=== PATIENT | female | born 2000 | race African-American/Black ===

== ENCOUNTER 2020-07-26 11:01 | Outpatient (CLI) | payer OTHER, BC, SELFPAY ==
--- NOTE | ~2020-07-26 | XR_ITS ---
EXAMINATION: XR shoulder RT min 2V DATE: 07/26/2020 11:27 INDICATION: Right shoulder pain. TECHNIQUE: 4 views of right shoulder were obtained. COMPARISON: None. FINDINGS: Bone alignment is normal. No fracture. Joint spaces are well maintained. IMPRESSION: 1. Normal right shoulder. Reviewed, dictated and finalized at location A. IMPRESSION: 1. Normal right shoulder.
--- NOTE | ~2020-07-26 | XR_ITS ---
XR lumbar spine 2-3V 07/26/2020 11:27 Indication: Low back pain. Lifting injury. Procedure: 3 views lumbar spine Comparison: No prior studies for comparison. Findings: No fracture, subluxation or dislocation. There is normal lumbar lordosis. No evidence for s pondylolisthesis. There is incomplete developmental fusion of the posterior elements at L5. Pedicles intact. Impression: 1: No significant bone or joint abnormality. Reviewed, dictated and finalized at location A. Impression: 1: No significant bone or joint abnormality.
== END 2020-07-26 11:02 | disposition home or self-care (01) ==
PROVIDERS: PCP Nurse Practitioner Family; Visit Provider Nurse Practitioner Family
DX: M54.5 Low back pain (principal); M25.511 Pain in right shoulder
CPT/HCPCS: 72100; 73030

== ENCOUNTER 2021-10-20 13:17 | Emergency (ER) | payer BC, SELFPAY ==
--- NOTE | ~2021-10-20 | XR_ITS ---
XR hip LT min 3V w AP pelvis DATE: 10/20/2021 16:24 INDICATION: Patient fell down steps. Lateral left hip pain, radiating to thigh. TECHNIQUE: AP pelvis. AP, lateral and crosstable lateral views of left hip COMPARISON: None FINDINGS: Incidentally noted is spina bifida occulta at L5. The pubic symphysis and sacroiliac joints are intact. No pelvic fracture or bone destruction is detected. No fracture or dislocation, avascular necrosis or bone destruction of the left hip. Hip joint spaces are symmetric and well preserved. IMPRESSION: No pelvic or left hip fracture or dislocation Reviewed, dictated and finalized at location B. RATOR OPERATOR
[2021-10-20 13:34] VITALS: BP 137/77; PULSE 92; RESP 14; TEMP 36.7; O2SAT 99
[2021-10-20 15:23] VITALS: BP 130/72; PULSE 83; RESP 15; TEMP 36.6; O2SAT 100
[2021-10-20 17:30] VITALS: BP 122/69; PULSE 74; RESP 15; TEMP 36.8; O2SAT 99
--- NOTE | 2021-10-20 18:37 | ED.GENADULT ---
HPI - General Adult General Chief complaint: Fall Stated complaint: fall Time Seen by Provider: 10/20/21 15:46 Source: patient Mode of arrival: ambulatory Limitations: no limitations History of Present Illness HPI narrative: Patient is 21-year-old female presented with chief complaint of lateral hip pain that began after falling down 8 steps on Wednesday. Patient denies head impact or loss of consciousness. Patient reports she is able to ambulate but there is discomfort. Patient reports fracturing the right hip multiple years ago but not have any prior fractures or injuries to the left hip. Patient reports that she is able to abduct and move the left leg. She denies any other areas of injury. Related Data Allergies Allergy/AdvReac Type Severity Reaction Status Date / Time No Known Allergies Allergy Verified 10/20/21 15:26 Review of Systems Review of Systems: CONSTITUTIONAL: Denies fever, chills, or sweats. EYES: Denies visual changes, redness, or discharge. ENT: Denies rhinorrhea, congestion, sore throat, or otalgia. CARDIOVASCULAR: Denies chest pain, palpitations, or edema. RESPIRATORY: Denies cough or dyspnea. GASTROINTESTINAL: Denies abdominal pain, nausea, vomiting, or diarrhea. GENITOURINARY: Denies dysuria or hematuria. SKIN: Denies rash or itching. MUSCULOSKELETAL: Reports left hip pain denies back pain, joint pain, or myalgia. NEUROLOGIC: Denies headache, numbness, dizziness, or weakness. PSYCHIATRIC: Denies anxiety or depression. Exam Narrative: GENERAL: Well-appearing, well-nourished, and in no acute distress. HEAD: Normocephalic, atraumatic. EYES: PERRLA and EOMI. NECK: Supple. Range of motion intact. CHEST: Clear to auscultation. No respiratory distress. No wheezes rales or rhonchi HEART: Regular rate and rhythm. No murmur heard. Normal peripheral pulses. EXTREMITIES: Pain to the lateral aspect of left leg/hip. No open wounds. No deformity appreciated. Limping gait. Patient able to abduct left leg with discomfort. No edema. SKIN: Warm, dry, no rash. NEURO: No focal deficits. Alert and oriented x3. PSYCH: Normal mood and affect. Course Vital Signs Vital signs: Vital Signs Temperature 98.0 F 10/20/21 13:34 Pulse Rate 92 10/20/21 13:34 Respiratory Rate 14 10/20/21 13:34 Blood Pressure 137/77 10/20/21 13:34 Pulse Oximetry 99 10/20/21 13:34 Temperature 97.9 F 10/20/21 15:23 Pulse Rate 83 10/20/21 15:23 Respiratory Rate 15 10/20/21 15:23 Blood Pressure 130/72 10/20/21 15:23 Pulse Oximetry 100 10/20/21 15:23 Medical Decision Making MDM Narrative Medical decision making narrative: No fractures noted on x-ray. Patient likely has injury to the tendons and ligaments. Patient has been instructed to follow-up with primary care with specialist for further evaluation of symptoms of ligament. She has been informed that she may need physical therapy or further imaging which can include an MRI outpatient. Patient verbalized understanding agreement with plan. Patient will be given crutches to assist with ambulation. Patient works at [employer] and will be given note to avoid prolonged standing or walking. Differential Diagnosis Differential Diagnosis: Fracture, sprain, strain Vital Signs Vital Signs: Vital Signs Temperature 98.0 F 10/20/21 13:34 Pulse Rate 92 10/20/21 13:34 Respiratory Rate 14 10/20/21 13:34 Blood Pressure 137/77 10/20/21 13:34 Pulse Oximetry 99 10/20/21 13:34 Temperature 97.9 F 10/20/21 15:23 Pulse Rate 83 10/20/21 15:23 Respiratory Rate 15 10/20/21 15:23 Blood Pressure 130/72 10/20/21 15:23 Pulse Oximetry 100 10/20/21 15:23 Lab Data Labs: UCG Bedside Result Negative Reference Range: Negative Imaging Data Radiologist's impression: ITS Impressions Hip/Pelvis X-Ray 10/20/21 16:27 IMPRESSION: No pelvic or left hip fracture or dislocation
== END 2021-10-20 17:30 | disposition home or self-care (01) ==
LOC: ANHED 17:14
PROVIDERS: Emergency Provider Emergency Medicine; PCP Nurse Practitioner Family
DX: S73.102A Unspecified sprain of left hip, initial encounter (principal); W10.9XXA Fall (on) (from) unspecified stairs and steps, initial encounter
CPT/HCPCS: 73502; 81025; 99283

== ENCOUNTER 2021-11-09 08:15 | Emergency (ER) | payer BC, SELFPAY ==
--- NOTE | ~2021-11-09 | XR_ITS ---
XR thoracic spine 3V 11/09/2021 08:57 Indication: Back pain after recent fall Procedure: 3 views thoracic spine. Comparison: No prior studies for comparison. Findings: No fracture, subluxation or dislocation. Mild dextrocurvature of the lower thoracic spine. Vertebral body heights are maintained. Pedicles intact. Surrounding osseous structures within normal limits. Impression: 1: No acute abnormality of the thoracic spine. Reviewed, dictated and finalized at location A. INTEGRATION ANALYST Impression: 1: No acute abnormality of the thoracic spine.
--- NOTE | ~2021-11-09 | XR_ITS ---
XR lumbar spine 2-3V 11/09/2021 08:57 Indication: Back pain Procedure: 2 views of the lumbar spine Comparison: 07/26/2020 Findings: No acute fracture or traumatic malalignment. Vertebral body heights are maintained. No evid ence for spondylolisthesis. Pedicles intact. There is incomplete fusion of the spinous processes at L 5. Sacral foramen are symmetric. Impression: 1: No acute abnormality of the lumbar spine. Reviewed, dictated and finalized at location A. E OPERATOR HELPER Impression: 1: No acute abnormality of the lumbar spine.
[2021-11-09 08:25] VITALS: BP 136/90; PULSE 101; RESP 20; TEMP 36.8; O2SAT 100
--- NOTE | 2021-11-09 08:42 | ED.BACK ---
HPI - Back Pain/Injury General Chief Complaint: Back Pain/Injury Stated Complaint: back pain after fall 2 weeks ago Time Seen by Provider: 11/09/21 08:41 Source: patient Mode of arrival: ambulatory Limitations: no limitations History of Present Illness HPI Narrative: Patient is a 21-year-old female presenting for evaluation of middle, lower back pain that occurred following a fall down 8 steps 2 weeks ago. Patient was seen in this emergency department for her initial visit. I did review her chart. Patient at that point was only reporting hip pain and had negative hip imaging and was ultimately discharged home as she was neurovascularly intact at time. Patient returns for dull, aching middle and lower back pain with radiates into her buttocks bilaterally. She denies any thigh pain or knee pain. No foot drop. She has been ambulatory without difficulty. She reports that pain is exacerbated with certain movements such as bending. Patient reports she has been doing heavy bending or lifting at work over the past 2 weeks. Patient has been taking naproxen and muscle relaxers as prescribed without much improvement in her symptoms. Patient denies any fever, chills. She denies any saddle anesthesia. No difficulty with bowel or bladder function. Pt denies dysuria, hematuria, urinary frequency. Related Data Allergies Allergy/AdvReac Type Severity Reaction Status Date / Time No Known Allergies Allergy Verified 11/09/21 08:28 Review of Systems Review of Systems: CONSTITUTIONAL: Denies fever, chills, or sweats. EYES: Denies visual changes, redness, or discharge. ENT: Denies rhinorrhea, congestion, sore throat, or otalgia. CARDIOVASCULAR: Denies chest pain, palpitations, or edema. RESPIRATORY: Denies cough or dyspnea. GASTROINTESTINAL: Denies abdominal pain, nausea, vomiting, or diarrhea. GENITOURINARY: Denies dysuria or hematuria. SKIN: Denies rash or itching. MUSCULOSKELETAL: Reports back pain without other joint pain, or myalgia. NEUROLOGIC: Denies headache, numbness, or weakness. [facility] Social History Social History (Updated 11/09/21 @ 08:49 by Mami Lewis MD) Smoking status: Never smoker Alcohol intake: never Substance use: never Gender identity (if verbalized by the patient): Female Exam Narrative: GENERAL: Awake, alert, conversant HEAD: Normocephalic, atraumatic. EYES: PERRLA and EOMI. ENT: Nares clear, no rhinorrhea or epistaxis. Mucous membranes moist. NECK: Supple. CHEST: No respiratory distress, breathing even and non labored HEART: Regular rate, sinus rhythm ABDOMEN:Non distended, non tender Thorax: No cervical or thoracic midline lumbar tenderness to palpation. No paraspinal tenderness. There is positive lumbar midline tenderness and paraspinal tenderness which exactly reproduces symptoms. No step-offs or deformities. EXTREMITIES: Normal range of motion. No edema. SKIN: Warm, dry, no rash. NEURO:No focal deficits. Alert and oriented x3. EOMs intact without nystagmus. No facial droop/asymmetry noted bilaterally. Grimace intact. Intact sensation in face. Hearing intact bilaterally. Shoulder shrug intact. Strength 5/5 bilateral upper extremities. Strength 5/5 bilateral lower extremities. Reflexes 2+ patellar. Ambulatory with a narrow base, steady gait, no ataxia. Course Vital Signs Vital signs: Vital Signs Temperature 36.8 C 11/09/21 08:25 Pulse Rate 101 H 11/09/21 08:25 Respiratory Rate 20 11/09/21 08:25 Blood Pressure 136/90 11/09/21 08:25 Pulse Oximetry 100 11/09/21 08:25 Temperature 36.8 C 11/09/21 08:25 Pulse Rate 101 H 11/09/21 08:25 Respiratory Rate 20 11/09/21 08:25 Blood Pressure 136/90 11/09/21 08:25 Pulse Oximetry 100 11/09/21 08:25 MDM - Back Pain/Injury MDM Narrative Medical decision making narrative: Given History and Exam the patient appears to be at low risk for Spinal Cord Compression Syndrome, Vertebral Malignancy/Mets, acute Spinal Fract
[2021-11-09] MEDS: predniSONE 20 MG TABLET 60 MG PO (09:02)
[2021-11-09] MEDS: ACETAMINOPHEN 500 MG TABLET 1000 MG PO (09:03)
[2021-11-09] MEDS: KETOROLAC (*BKC) 60 MG/2 ML VIAL 30 MG IM (09:03)
== END 2021-11-09 10:10 | disposition home or self-care (01) ==
PROVIDERS: Emergency Provider Emergency Medicine; PCP Nurse Practitioner Family
DX: S39.012A Strain of muscle, fascia and tendon of lower back, initial encounter (principal); W10.9XXA Fall (on) (from) unspecified stairs and steps, initial encounter
CPT/HCPCS: 72072; 72100; 96372; 99283; A9270; J1885; J7512

== ENCOUNTER 2022-07-11 10:50 | Emergency (ER) | payer BC, OTHER, SELFPAY ==
[2022-07-11 10:56] VITALS: BP 113/68; PULSE 86; RESP 16; TEMP 37.1; O2SAT 99
[2022-07-11 11:33] VITALS: BP 107/79; PULSE 77; RESP 15; O2SAT 99
[2022-07-11 12:00] VITALS: BP 106/70; PULSE 70; O2SAT 98
--- NOTE | 2022-07-11 12:24 | ED.EXTPRO ---
HPI - Extremity Problem General Chief complaint: Extremity Problem,Nontraumatic Stated complaint: right arm pain and weakness Time Seen by Provider: 07/11/22 12:16 Source: patient Mode of arrival: ambulatory Limitations: no limitations History of Present Illness HPI Narrative: Patient is 22 years old -[place] female presents with gradual increase of pain, numbness of the right hand and distal right forearm over the last 2 weeks. 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 Patient denies any trauma. Related Data Home Medications Medication Instructions Recorded Confirmed buspirone 5 mg tablet mg 07/11/22 valacyclovir 1 gram tablet mg 07/11/22 Allergies Allergy/AdvReac Type Severity Reaction Status Date / Time No Known Allergies Allergy Verified 11/09/21 08:28 Review of Systems Review of Systems: All systems reviewed & are unremarkable except as noted in HPI and below PMFSH Social History Social History Smoking status: Never smoker Alcohol intake: never Substance use: never Gender identity (if verbalized by the patient): Female Exam Narrative: General appearance: Well-developed, well-nourished Skin: Normal color Head: Normocephalic, nontraumatic Eyes: Clear conjunctiva ENT: Oropharynx normal, ears normal, nose normal Neck: Supple, nontender Chest and respiratory: Airway patent, no respiratory distress, no accessory muscle use Heart: Regular rate/rhythm Abdomen: Soft, nontender, no organomegaly, quiet bowel sounds Vascular: Normal peripheral pulses, normal capillary refill. Musculoskeletal: Normal range of motion, nontender back Neurologic: Alert and oriented ?3, FORM LAYER is normal as tested, no gross motor deficit, positive Phalen's test Course Vital Signs Vital signs: Vital Signs Temperature 37.1 C 07/11/22 10:56 Pulse Rate 86 07/11/22 10:56 Respiratory Rate 16 07/11/22 10:56 Blood Pressure 113/68 07/11/22 10:56 Pulse Oximetry 99 07/11/22 10:56 Oxygen Delivery Room Air 07/11/22 10:56 Temperature 37.1 C 07/11/22 10:56 Pulse Rate 77 07/11/22 13:10 Respiratory Rate 15 07/11/22 13:10 Blood Pressure 116/71 07/11/22 13:10 Pulse Oximetry 98 07/11/22 13:10 Oxygen Delivery Room Air 07/11/22 10:56 Critical Care Time Critical Care Time Critical Care Time: No Discharge Plan Discharge Clinical Impression: Acute carpal tunnel syndrome, Paresthesia of hand Patient Disposition: Home, Self-Care Condition: Stable Instructions: Antibiotic Form, Carpal Tunnel Syndrome (DC), Paresthesia (ED) Additional Instructions: Return if symptoms are worsening , call Dr. Man for appointment, take Tylenol, as needed for pain Wrist splint to limit wrist movement, mainly at night Prescriptions: New naproxen [Naprosyn] 500 mg tablet 500 mg PO BID PRN (Reason: pain) Qty: 14 0RF No Action acetaminophen 500 mg capsule 500 mg PO Q6H PRN (Reason: fever or pain) Qty: 30 0RF buspirone 5 mg tablet valacyclovir 1 gram tablet Follow-up/Referrals: Ayesha,JOSELITO Johnson [Primary Care Provider] - Mina Man MD [Physician] - 07/13/22 Stand Alone Forms: Work/School Release IP
[2022-07-11 13:10] VITALS: BP 116/71; PULSE 77; RESP 15; O2SAT 98
== END 2022-07-11 13:18 | disposition home or self-care (01) ==
PROVIDERS: Emergency Provider Emergency Medicine; PCP Nurse Practitioner Family
DX: G56.01 Carpal tunnel syndrome, right upper limb (principal); R20.2 Paresthesia of skin
CPT/HCPCS: 99283

== ENCOUNTER 2022-08-10 09:18 | Outpatient (CLI) | payer BC, OTHER, SELFPAY ==
--- NOTE | ~2022-08-10 | XR_ITS ---
EXAMINATION:XR cervical spine 4-5V DATE: 08/10/2022 10:34 INDICATION: Neck pain TECHNIQUE: AP, lateral, lateral swimmers and odontoid views of the cervical spine are provided. COMPARISON: None FINDINGS: Alignment is normal. The odontoid is intact. No fracture is identified. Vertebral body heig hts and disk spaces are normal. Prevertebral soft tissues are normal. IMPRESSION: 1. No acute osseous abnormality. Reviewed, dictated and finalized at location A.
--- NOTE | ~2022-08-10 | XR_ITS ---
EXAMINATION: XR shoulder RT min 2V INDICATION: Right shoulder pain TECHNIQUE: Four views of the right shoulder are submitted. COMPARISON: 07/26/2020 FINDINGS: Normal alignment. No fracture. Glenohumeral and acromioclavicular joint spaces are normal. Soft tissues are unremarkable. IMPRESSION: 1. No acute osseous abnormality. Reviewed, dictated and finalized at location A.
[2022-08-10 09:20] VITALS: BP 127/78; PULSE 92; RESP 18; TEMP 36.5; O2SAT 100
--- NOTE | 2022-08-10 10:26 | ED.UPPEXIN ---
HPI - Extremity Injury (Upper) General Chief Complaint: Extremity Injury, Upper Stated Complaint: R SHOULDER PAIN Time Seen by Provider: 08/10/22 09:33 Source: patient Mode of arrival: ambulatory Limitations: no limitations History of Present Illness HPI narrative: Patient is a 22 y/o female who presents to the ED with c/o R shoulder pain. Patient reports having pain for the last 3 weeks to 1 month. Initially was only having pain in her R wrist, and was diagnosed with carpal tunnel after being seen in the ED. She has been wearing a cock-up wrist splint at night and at work. Over the last couple weeks pain seems to be in her right shoulder, radiating up to her neck and down her right upper extremity. No known injury. No numbness/tingling, weakness. She was prescribed naproxen previously and has been taking this at night with relief of pain. Related Data Home Medications Medication Instructions Recorded Confirmed buspirone 5 mg tablet mg 07/11/22 valacyclovir 1 gram tablet mg 07/11/22 Allergies Allergy/AdvReac Type Severity Reaction Status Date / Time No Known Allergies Allergy Verified 08/10/22 09:26 Review of Systems Review of Systems: CONSTITUTIONAL: Denies fever, chills, or sweats. MUSCULOSKELETAL: Reports R shoulder pain, down RUE, into neck. NEUROLOGIC: Denies tingling, numbness, or weakness. All systems reviewed & are unremarkable except as noted in HPI and below PMFSH Past Medical History Medical History (Updated 08/10/22 @ 11:03 by Mahsa Hatch PA-C) Herpes genitalia Surgical History Surgical History (Updated 08/10/22 @ 10:30 by Mahsa Hatch PA-C) No pertinent past surgical history Social History Social History Smoking status: Never smoker Alcohol intake: never Substance use: never Gender identity (if verbalized by the patient): Female Exam Narrative: GENERAL: Well appearing, well-nourished, non-toxic, in no acute distress. HEAD: Normocephalic, atraumatic. NECK: Supple. No adenopathy, no masses. No midline spinal tenderness. Mild R sided paraspinal muscle tenderness and tightness into trapezius. RESPIRATORY: Airway patent, respirations nonlabored. Clear to auscultation bilaterally, no rales, rhonchi, wheezing. CARDIOVASCULAR: Regular rate and rhythm without murmurs, rubs, or gallops. Radial pulses 2+ and equal bilaterally. MUSCULOSKELETAL: Moves all extremities. No gross deformities. Mild limited ROM of R shoulder due to discomfort, abduction and forward flexion to about 110 degrees. Full internal and external rotation but some discomfort with this. TTP over anterior R shoulder. SKIN: Warm, dry, normal color. No rashes. NEURO: A&O X3. Speech clear. Cranial nerves II-XII grossly intact. Steady gait. No ataxic movements. Equal research intern strengths. PSYCHIATRIC: Appropriate mood and affect. Normal interaction. Course Vital Signs Vital signs: Vital Signs Temperature 97.7 F 08/10/22 09:20 Pulse Rate 92 08/10/22 09:20 Respiratory Rate 18 08/10/22 09:20 Blood Pressure 127/78 08/10/22 09:20 Pulse Oximetry 100 08/10/22 09:20 Oxygen Delivery Room Air 08/10/22 09:20 Temperature 97.7 F 08/10/22 09:20 Pulse Rate 92 08/10/22 09:20 Respiratory Rate 18 08/10/22 09:20 Blood Pressure 127/78 08/10/22 09:20 Pulse Oximetry 100 08/10/22 09:20 Oxygen Delivery Room Air 08/10/22 09:20 MDM - Extremity Injury (Upper) MDM Narrative Medical decision making narrative: Patient presented to ED with 1 month history of right shoulder pain, pain somewhat radicular in nature, radiating up to neck, though more tightness/muscle tension over trapezius. No red flag symptoms, signs of cord compression. No weakness, numbness, tingling. XR of shoulder and c-spine w/o acute findings. Discussed that patient's pain could be related to rotator cuff impingement/tendinopathy as she does have some discom
[2022-08-11 12:11] LABS: Basophils Percent Auto 0.6 % (0.2-1.2); Eosinophils Absolute Auto 0.1 K/mm3 (0-0.3); Eosinophils Percent Auto 0.9 % (0-4.4); Hematocrit 38.8 % (37.0-47.0); Immature Granulocyte Absolute 0.01 K/mm3 (0.00-0.031); Immature Granulocyte Percent A 0.2 % (0-0.5); Lymphocytes Percent Auto 27.1 % (18.3-44.2); Mean Corpuscular HGB Conc 36.1 g/dl (32-36); Mean Corpuscular Volume 88.8 fl (80-100); Mean Platelet Volume 10.1 fl (7.4-10.4); Monocytes Absolute Auto 0.4 K/mm3 (0.1-0.6); Neutrophils Absolute Auto 4.3 K/mm3 (1.3-6.7); Neutrophils Percent Auto 65.2 % (45.5-73.1); Platelet Count Result 336 k/mm3 (150-375); Red Blood Count 4.37 M/mm3 (4.2-5.4); Red Cell Distribution Width 13.8 % (11.5-14.5); White Blood Count 6.6 K/mm3 (4.5-10.0)
[2022-08-11 12:24] LABS: Rheumatoid Factor 21.9 IU/ML (<12)
[2022-08-11 12:26] LABS: Alanine Aminotransferase 20 U/L (6-35); Albumin Level 4.6 g/dL (3.5-5.1); Alkaline Phosphatase 66 U/L (38-126); Anion Gap 8 mmol/L (8-16); Aspartate Amino Transferase 23 U/L (14-36); Bilirubin,Total 0.6 mg/dL (0.2-1.3); Blood Urea Nitrogen 11 mg/dL (7-17); CRP < 0.5 mg/dL (<1.0); Calcium 9.3 mg/dL (8.4-10.2); Carbon Dioxide 24 mmol/L (22-30); Chloride 104 mmol/L (98-107); Creatine Kinase 49 U/L (30-135); Estimated CRCL calculation 108 ml/min; Estimated Glomerular Filt Rate > 60; Glucose 94 mg/dL (65-110); Lactate Dehydrogenase 148 U/L (120-246); Potassium 4.4 mmol/L (3.4-5.0); Sodium 136 mmol/L (137-145); Uric Acid 3.5 mg/dL (2.5-7.5)
[2022-08-11 13:15] LABS: Erythrocyte Sedimentation Rate 17 mm/hr (0-20)
[2022-08-11 14:01] LABS: Vitamin D 25 Hydroxy 28.2 ng/mL
[2022-08-11 15:02] LABS: Hemoglobin A1C 5.3 % (<5.7)
[2022-08-11 22:10] LABS: Complement C3 110 mg/dL (88-165)
[2022-08-14 04:40] LABS: Thyroid Peroxidase Antibodies <1 IU/mL (<9)
[2022-08-15 04:13] LABS: Aldolase 4.9 U/L (<=8.1); Angiotensin Converting Enzyme 20 U/L (9-67)
[2022-08-15 12:20] LABS: Anti Cyclic Citrullinated Pept <16 Units (<20)
[2022-08-16 07:52] LABS: SM Antibody <1.0; SM/RNP Antibody <1.0; SS-A <1.0; SS-B <1.0
[2022-08-17 06:13] LABS: Hexagonal Phase Confirm Negative (Negative); Lupus dRVVT Screen 37 sec (<=45); PTT-LA Screen 41 sec (<=40)
[2022-08-18 22:43] LABS: ANA Pattern Nuclear, Speckled
== END 2022-08-11 11:30 | disposition home or self-care (01) ==
LOC: ANHED 11:11 → ANHLAB 08-11 11:35
PROVIDERS: Emergency Provider Emergency Medicine; PCP Nurse Practitioner Family; Visit Provider Internal Medicine
DX: M54.12 Radiculopathy, cervical region (principal); M25.511 Pain in right shoulder; M12.811 Other specific arthropathies, not elsewhere classified, right shoulder; F41.9 Anxiety disorder, unspecified
CPT/HCPCS: 36415; 72050; 73030; 80053; 82085; 82164; 82306; 82550; 83036; 83615; 84443; 84550; 85025; 85598; 85613; 85652; 85730; 86038; 86039; 86140; 86160; 86200; 86225; 86235; 86376; 86430

== ENCOUNTER 2022-08-22 11:37 | Outpatient (CLI) | payer BC, OTHER, SELFPAY ==
--- NOTE | ~2022-08-22 | XR_ITS ---
EXAMINATION: XR foot LT standing 2V DATE: 08/22/2022 12:13 INDICATION: Unspecified arthritis, unspecified site. TECHNIQUE: 2 views of left foot standing were obtained. COMPARISON: None. FINDINGS: Bone alignment is normal. No fracture. There is mild osteoarthritis of talonavicular joint. IMPRESSION: 1. Mild osteoarthritis of talonavicular joint. Reviewed, dictated and finalized at location A.
--- NOTE | ~2022-08-22 | XR_ITS ---
EXAMINATION: XR hand BI arthritis min 3V DATE: 08/22/2022 12:13 INDICATION: Unspecified osteoarthritis, unspecified site. TECHNIQUE: 4 views of right hand and 4 views of left hand on a total of 7 radiographs were obtained. COMPARISON: None. FINDINGS: RIGHT HAND: Bone alignment is normal. No fracture. Joint spaces are normal. LEFT HAND: Bone alignment is normal. No fracture. Joint spaces are normal. IMPRESSION: 1. No arthritis. Reviewed, dictated and finalized at location A. IMPRESSION: 1. No arthritis.
--- NOTE | ~2022-08-22 | XR_ITS ---
XR sacroiliac joints min 3V 08/22/2022 12:13 Indication: Osteoarthritis. Procedure: 3 views of the sacroiliac joints Comparison: No prior studies for comparison. Findings: Sacroiliac joints are symmetric bilaterally without significant degenerative change, erosio ns or ankylosis. Sacral foramen are symmetric. Surrounding pelvic structures are unremarkable. Impression: 1: No significant abnormality of the sacroiliac joints. Reviewed, dictated and finalized at location B. Impression: 1: No significant abnormality of the sacroiliac joints.
--- NOTE | ~2022-08-22 | XR_ITS ---
EXAMINATION: XR foot RT standing 2V DATE: 08/22/2022 12:13 INDICATION: Unspecified osteoarthritis, unspecified site. TECHNIQUE: 2 views of right foot standing were obtained. COMPARISON: None. FINDINGS: Bone alignment is normal. No fracture. There is mild osteoarthritis of talonavicular joint. IMPRESSION: 1. Mild osteoarthritis of talonavicular joint. Reviewed, dictated and finalized at location A.
[2022-08-27 07:07] LABS: ANCA Screen Negative (Negative); Thyroid Peroxidase Antibodies <1 IU/mL (<9)
== END 2022-08-22 11:38 | disposition home or self-care (01) ==
PROVIDERS: PCP Nurse Practitioner Family; Visit Provider Internal Medicine
DX: M60.9 Myositis, unspecified (principal); F41.9 Anxiety disorder, unspecified; M19.071 Primary osteoarthritis, right ankle and foot; M19.072 Primary osteoarthritis, left ankle and foot
CPT/HCPCS: 36415; 72202; 73130; 73620; 86036; 86331; 86334; 86376; 86606; 86609

== ENCOUNTER 2022-09-30 15:37 | Outpatient (CLI) | payer BC, OTHER, SELFPAY ==
--- NOTE | ~2022-09-30 | MR_ITS ---
EXAMINATION: MR cervical spine wo/w con DATE: 09/30/2022 16:54 INDICATION: Neck pain. TECHNIQUE: Magnetic resonance imaging (MRI) of the cervical spine was performed without and with 15 m L MultiHance intravenous contrast. COMPARISON: Cervical spine radiographs 08/10/2022 FINDINGS: There is hypolordosis of cervical spine. Vertebral body heights and intervertebral disc hei ghts are normal. The spinal cord signal intensity is normal. The following disc levels are specifical ly discussed: C2-C3: The disc does not extend beyond the endplate margin. There is no uncovertebral joint osteoarth ritis. There is mild bilateral facet joint osteoarthritis. There is no neural foraminal stenosis. The re is no central canal stenosis. C3-C4: The disc does not extend beyond the endplate margin. There is no uncovertebral joint osteoarth ritis. There is mild bilateral facet joint osteoarthritis. There is no neural foraminal stenosis. The re is no central canal stenosis. C4-C5: The disc does not extend beyond the endplate margin. There is no uncovertebral joint osteoarth ritis. There is no facet joint osteoarthritis. There is no neural foraminal stenosis. There is no philippe tral canal stenosis. C5-C6: There is a right central extrusion. There is mild bilateral uncovertebral joint osteoarthritis . There is no facet joint osteoarthritis. There is no neural foraminal stenosis. There is mild centra l canal stenosis. C6-C7: The disc does not extend beyond the endplate margin. There is no uncovertebral joint osteoarth ritis. There is no facet joint osteoarthritis. There is no neural foraminal stenosis. There is no philippe tral canal stenosis. C7-T1: The disc does not extend beyond the endplate margin. There is mild bilateral uncovertebral magdalena nt osteoarthritis. There is moderate right and mild left facet joint osteoarthritis. There is mild ri ght neural foraminal stenosis. There is no central canal stenosis. IMPRESSION: 1. Mild cervical spondylosis. Reviewed, dictated and finalized at location A. AL TUBE WINDER
--- NOTE | ~2022-09-30 | MR_ITS ---
EXAMINATION: MR lumbar spine wo/w con DATE: 09/30/2022 16:54 INDICATION: Low back pain. TECHNIQUE: Magnetic resonance imaging (MRI) of the lumbar spine was performed without and with 15 mL MultiHance intravenous contrast. COMPARISON: Lumbar spine radiographs 11/09/2021 FINDINGS: Bone alignment is normal. Vertebral body heights are normal. There is mildly decreased disc height at L5-S1. The distal spinal cord signal intensity is normal. The conus medullaris is at L1-L2 . The following disc levels are specifically discussed: L1-L2: The disc does not extend beyond the endplate margin. There is mild bilateral facet joint osteo arthritis. There is no neural foraminal stenosis. There is no central canal stenosis. L2-L3: The disc does not extend beyond the endplate margin. There is moderate bilateral facet joint o steoarthritis. There is no neural foraminal stenosis. There is no central canal stenosis. L3-L4: The disc does not extend beyond the endplate margin. There is moderate right and mild left fac et joint osteoarthritis. There is no neural foraminal stenosis. There is no central canal stenosis. L4-L5: The disc is mildly bulging. There is mild bilateral facet joint osteoarthritis. There is mild bilateral neural foraminal stenosis. There is no central canal stenosis. L5-S1: The disc is bulging and has an annular fissure. There is moderate bilateral facet joint osteoa rthritis. There is mild bilateral neural foraminal stenosis. There is mild central canal stenosis. IMPRESSION: 1. Mild lumbar spondylosis. Reviewed, dictated and finalized at location A. ER FURNACE IMPRESSION: 1. Mild lumbar spondylosis.
== END 2022-09-30 15:38 | disposition home or self-care (01) ==
PROVIDERS: PCP Nurse Practitioner Family; Visit Provider Internal Medicine
DX: R20.2 Paresthesia of skin (principal); R20.0 Anesthesia of skin; M06.9 Rheumatoid arthritis, unspecified; M75.41 Impingement syndrome of right shoulder; M54.12 Radiculopathy, cervical region; M43.02 Spondylolysis, cervical region; M43.06 Spondylolysis, lumbar region
CPT/HCPCS: 72156; 72158; A9577

== ENCOUNTER 2022-11-04 10:00 | Outpatient (RCR) | payer BC, SELFPAY ==
--- NOTE | 2022-10-05 13:12 | PCPTNOTE ---
Patient called & cancelled scheduled appointment this date due to scheduling conflict
--- NOTE | 2022-10-07 13:24 | PTOPEVAL1 ---
Assessment and note entered by Jennifer Medina, PT Evaluation Information Assessment Status Evaluation Diagnosis R shoulder and cervical pain Onset August 2022 Subjective Information gradual increase in neck pain, has gotten worse; In August went to ER due to pain; slipped and fell at home 2 days ago, fell backwards and landed on her L elbow, did not hit head/neck; is able to do everything at home but lifting; problems with sleeping and moving in/out bed--feel like cannot lift her neck and head--heavy; and afraid she will hurt her neck more; did have pain in her R arm, but that is less now. Reported Pain Level Pain Score Self Report Additional Pain Score Comments pain range of 8-10/10; achey, sore, stiff, swollen from chest up; cannot move neck; increase pain with moving neck, sleeping--getting comfortable is an issue, sleep about 3 hours/time (her normal is 6 hours); decrease pain with heat, change position, more upright position; Have headaches every day, about 50-100% day, start at base of neck, go up back of head to top of head and eyes; tenderness over R upper traps, top of shoulder throb and ache; ALSO have back pain; Assessment PT Clinical Summary Angeline has the diagnosis of cervical and R shoulder pain. She reports gradual increase in neck pain, R shoulder pain and headaches. The pain into her R arm is less, now only in shoulder. Sleeping and activity level effected by pain, with Oswestry self assessment score of 74% limitation. She also has back pain and rheumatoid arthritis. Her MRI report states mild cervical spondylosis and mild facet OA. With the evaluation, she has decreased cervical rotation ROM to the R and pain with motions of cervical flexion, extension, rotation R and shoulder flexion R; she has poor standing position of her neck and shoulders, with spasms throughout B upper traps, B SCM and R upper cervical area. Skilled PT services are indicated for modalities to decrease pain and spasms, therapeutic exercises to increase flexibility and strength of cervical- thoracic area with education for HEP and posture. Plan of Care Interventions E
--- NOTE | 2022-10-27 11:26 | PCPTNOTE ---
DINING SERVER called Pt at 10:33 and left message for pt that she was had an appt this morning at [place].
--- NOTE | 2022-11-04 10:47 | PTOPPROG ---
Assessment and note entered by Jennifer Medina, PT Evaluation Information Assessment Status Progress Diagnosis R shoulder and cervical pain Onset August 2022 Subjective Information Lyriq reports: still having pain in neck, not sure if any better or not; few days ago had really bad low back pain, that has eased now; less pain in R shoulder than there was; pain range of 6-10/10; R side of neck, upper trunk, shoulder and scapular areas; constant headaches, back of neck, R and L hindu areas; sleeping tolerance 4-5 hours at time; increase pain with lifting, sit straight up without any head support; decreased pain- lean head back on chair for support, heat; take ibuprofen PRN; self assessment Oswestry neck score of 60% limitation in activity level Assessment PT Clinical Summary Ms. Lance has received 6 PT sessions. Compared to the initial evaluation: pain rating at the least has improved from 8 to 6/10 and high rating same at 10/10; reports less R shoulder pain; headaches remain at constant ; sleeping tolerance has improved from 3 to 4-5 hours at time self assessment improved from 74 to 60% limitation in activity level; slight increase in ROM of cervical rotation to R; continues to have pain increase with cervical rotation to R and extension motions; R shoulder active motions do not increase her pain; MAX lifts: standing R shoulder flexion 5# x 5 reps, report increase R shoulder pain B UE box lift: waist/floor height, 15# x 1 rep report R shoulder pain The goals were partially achieved. She continues to have high pain rating and headaches. Discussed with her to have a follow up appointment and if PT is to continue, she will need a new script. HOLD PT--await further orders if PT is to continue Plan of Care PT Services Indicated Yes Treatment Frequency and HOLD PT--pt to have follow up appointment, await Duration further orders if PT is to continue. These treatments will address the objective and functional deficits as defined above. The patient will be advanced safely and appropriat
--- NOTE | 2022-11-30 10:15 | PCPTNOTE ---
PHYSICAL THERAPY DISCHARGE 11-30-22 Attending Provider: TESHA Camarena Patient:Angeline Lance Date of :2000 Ms. Lance has not returned for any further treatments since the reevaluation on 11/04/2022, therefore she will be discharged at this time. Refer to that report, for her status at the last session. Thank you for referring Angeline to [facility].
== END 2022-12-01 09:15 | disposition home or self-care (01) ==
LOC: ANHPT 10:00
PROVIDERS: PCP Nurse Practitioner Family; Visit Provider Physician Assistant Surgical
DX: M75.41 Impingement syndrome of right shoulder (principal); M54.12 Radiculopathy, cervical region
CPT/HCPCS: 97110; 97140; 97161; 97530; 99199

== ENCOUNTER 2022-12-16 15:38 | Outpatient (CLI) | payer BC, SELFPAY ==
--- NOTE | ~2022-12-16 | US_ITS ---
EXAMINATION: US abdomen limited DATE: 12/16/2022 16:12 INDICATION: Right upper quadrant abdominal pain. Fibromyalgia. TECHNIQUE: Multiple grayscale and Doppler ultrasound images of the abdomen were obtained. COMPARISON: None FINDINGS: The visualized portions of the head, body, and tail of the pancreas are normal. The liver i s normal without focal lesion. No liver surface nodularity. There is normal flow in main portal vein. The gallbladder is normal in size. No gallstones or gallbladder wall thickening. There is no sonogra phic Garcia sign. The common duct is normal and measures 4 mm. IMPRESSION: 1. Normal right upper quadrant ultrasound. Reviewed, dictated and finalized at location A. ICAL RESEARCH ASSOCIATE
== END 2022-12-16 15:39 | disposition home or self-care (01) ==
PROVIDERS: PCP Nurse Practitioner Family; Visit Provider Nurse Practitioner Family
DX: M79.7 Fibromyalgia (principal); F31.12 Bipolar disorder, current episode manic without psychotic features, moderate; R10.11 Right upper quadrant pain; R06.00 Dyspnea, unspecified; R06.02 Shortness of breath
CPT/HCPCS: 76705

== ENCOUNTER 2022-12-17 15:02 | Outpatient (CLI) | payer BC, SELFPAY ==
--- NOTE | ~2022-12-17 | CT_ITS ---
EXAMINATION: CTA chest PE protocol DATE: 12/17/2022 16:17 COST ACCOUNTING ANALYST INDICATION: Chest tightness. Back pain. TECHNIQUE: Computed tomographic angiography (CTA) of the chest was performed with 100 mL Omnipaque-35 0 intravenous contrast. The dose-length product was 228.93 mGy-cm. Maximum intensity projection 3D-re constructions of the aorta and other arteries were constructed by the technologist on a separate work station. Automated exposure control and iterative reconstruction technique were employed. COMPARISON: Chest dated 05/07/2022 FINDINGS: Study is technically adequate without evidence for pulmonary embolism. Evaluation of right upper lobe segmental pulmonary arteries limited by artifact from contrast in the SVC. No thoracic lym phadenopathy. Heart size normal. No significant pleural or pericardial effusion. No endobronchial les ions. The upper abdomen is unremarkable. No focal airspace consolidation. No pneumothorax. No endobro nchial lesions. No focal airspace consolidation. No suspicious pulmonary nodules or masses. No acute osseous abnormality. IMPRESSION: 1. No acute cardiopulmonary disease. Reviewed, dictated and finalized at location A. ACCOUNTING ANALYST
== END 2022-12-17 15:03 | disposition home or self-care (01) ==
LOC: ANHIMG 15:05
PROVIDERS: PCP Nurse Practitioner Family; Visit Provider Nurse Practitioner Family
DX: R06.02 Shortness of breath (principal)
CPT/HCPCS: 71275; Q9967

== ENCOUNTER 2023-04-27 09:04 | Emergency (ER) | payer BC, SELFPAY ==
[2023-04-27 09:15] VITALS: BP 123/77; PULSE 85; RESP 16; TEMP 37.1; O2SAT 99
[2023-04-27 09:18] VITALS: BP 123/77; PULSE 85; RESP 16; TEMP 37.1; O2SAT 99
--- NOTE | 2023-04-27 09:43 | ED.NAVMDI ---
HPI - Nausea/Vomiting/Diarrhea General Chief complaint: Nausea/Vomiting/Diarrhea Stated complaint: Diarrhea Time Seen by Provider: 04/27/23 09:40 Source: patient, RN notes reviewed and old records reviewed Mode of arrival: ambulatory Limitations: no limitations History of Present Illness HPI Narrative: 23-year-old female who presents to [facility] with complaints of 1 month duration of intermittent diarrhea which occurs daily. Patient reports that she is afraid to eat because she will then have diarrhea and has some abdominal cramping with stools, denies any vomiting but reports nausea, denies any fevers. Patient denies any recent illness or antibiotic use, is on Lamictal and Topamax with dosage changes in the past month. Patient has not called her PCP to discuss her symptoms. MD elicited complaint: nausea, diarrhea and other (abdominal cramping with stools) Onset (ago): month(s) (1) Description of diarrhea: watery Associated nausea: Yes Treatment prior to arrival: none Related Data Home Medications Medication Instructions Recorded Confirmed valacyclovir 1 gram tablet mg 07/11/22 11/20/22 alprazolam 0.25 mg tablet 0.25 mg PO DAILY 09/09/22 11/20/22 lamotrigine 50 mg tablet,extended 50 mg PO DAILY 10/21/22 11/20/22 release 24 hr topiramate 50 mg tablet mg 04/27/23 04/27/23 topiramate 25 mg tablet mg 04/28/23 topiramate 25 mg tablet mg 04/28/23 topiramate 25 mg tablet mg 04/28/23 topiramate 25 mg tablet mg 04/28/23 Allergies Allergy/AdvReac Type Severity Reaction Status Date / Time No Known Allergies Allergy Verified 04/27/23 09:17 Review of Systems Review of Systems: CONSTITUTIONAL: Denies fever, chills, or sweats. ENT: Denies rhinorrhea, congestion, sore throat, or otalgia. CARDIOVASCULAR: Denies chest pain, palpitations, or edema. RESPIRATORY: Denies cough or dyspnea. GASTROINTESTINAL: Reports cramping abdominal pain, nausea, no vomiting, positive for diarrhea. GENITOURINARY: Denies dysuria or hematuria. SKIN: Denies rash or itching. MUSCULOSKELETAL: Denies back pain, joint pain, or myalgia. NEUROLOGIC: Denies headache, numbness, or weakness. All systems reviewed & are unremarkable except as noted in HPI and below PMFSH Past Medical History Medical History (Updated 04/28/23 @ 00:00 by Background Daemon) Degenerative joint disease of cervical and lumbar spine Depression Herpes genitalia Hip pain, bilateral Inflammatory arthritis Rotator cuff arthropathy of right shoulder Surgical History Surgical History No pertinent past surgical history Social History Social History Smoking status: Current every day smoker Tobacco type: e-cigarettes/vaping Alcohol intake: current Substance use: current Substance use type: marijuana Lack of Transportation: No Lack of Food: Never True Current Housing: I Have Housing Concerned About Future Housing: No Difficulty Paying Gas/Electric Bills: No Difficulty Paying for Meds: No Currently Unemployed: No Education: High School Diploma/GED Difficulty w/ Childcare or Family Care: No Gender identity (if verbalized by the patient): Female Comments At time of signature, agree with nursing past medical, surgical, social and family history. There is no relevant family history pertinent to the presenting complaint Exam Narrative: GENERAL: Well-appearing, well-nourished, and in no acute distress. HEAD: Normocephalic, atraumatic. EYES: PERRLA, conjunctivae clear, and EOMI. ENT: Nares clear. Mucous membranes moist. Oropharynx without edema, erythema, or lesions. Tonsils not enlarged and without exudate. NECK: Supple. No lymphadenopathy CHEST: Speaks in full sentences. No respiratory distress. HEART: Regular rate and rhythm. ABDOMEN: Soft, flat, nondistended. No guarding, rebound tenderness, or rigid. No pulsatilla masses. B
== END 2023-04-27 10:06 | disposition home or self-care (01) ==
PROVIDERS: Emergency Provider Registered Nurse; PCP Nurse Practitioner Family
DX: K52.9 Noninfective gastroenteritis and colitis, unspecified (principal); F17.290 Nicotine dependence, other tobacco product, uncomplicated; F12.90 Cannabis use, unspecified, uncomplicated; M13.80 Other specified arthritis, unspecified site; M47.812 Spondylosis without myelopathy or radiculopathy, cervical region; M47.816 Spondylosis without myelopathy or radiculopathy, lumbar region
CPT/HCPCS: 99213; G0463

== ENCOUNTER 2023-11-16 19:42 | Emergency (ER) | payer BC, SELFPAY ==
[2023-11-16 19:58] VITALS: BP 125/75; PULSE 91; RESP 20; TEMP 36.9; O2SAT 99
--- NOTE | 2023-11-16 22:51 | ED.EPISTAXIS ---
HPI - Epistaxis General Chief complaint: Epistaxis Stated complaint: epistaxis Time Seen by Provider: 11/16/23 21:16 Source: patient Limitations: no limitations History of Present Illness HPI Narrative: Patient is a 23-year-old female presents to the emergency department complaining of epistaxis. Patient states she has had 6 episodes of epistaxis, from her right nostril today in each time it stops after holding pressure but then restarts. Patient admits to 2 days of symptoms of a viral URI with congestion and body aches and was diagnosed with COVID this morning and started on PACS of it and she has otherwise been taking DayQuil as needed. Patient denies any fevers. Patient denies any recent injuries, history of bleeding disorders, use of blood thinners, frequent nasal picking. Patient denies any recent trauma. Patient admits to using [place] nasal spray. Patient denies difficulty breathing, palpitations, chest pain, vaginal bleeding, bloody bowel movements. Patient's her last menstrual period was on the 05 of November. Related Data Home Medications Medication Instructions Recorded Confirmed valacyclovir 1 gram tablet mg 07/11/22 11/20/22 alprazolam 0.25 mg tablet 0.25 mg PO DAILY 09/09/22 11/20/22 lamotrigine 50 mg tablet,extended 50 mg PO DAILY 10/21/22 11/20/22 release 24 hr topiramate 50 mg tablet mg 04/27/23 04/27/23 topiramate 25 mg tablet mg 04/28/23 topiramate 25 mg tablet mg 04/28/23 topiramate 25 mg tablet mg 04/28/23 topiramate 25 mg tablet mg 04/28/23 Allergies Allergy/AdvReac Type Severity Reaction Status Date / Time No Known Allergies Allergy Verified 04/27/23 09:17 Review of Systems Review of Systems: A 10 system review of systems was completed on the patient and is negative except for what is stated in the HPI. Nursing and ancillary documentation was reviewed. [facility] Past Medical History Medical History (Updated 11/16/23 @ 23:54 by Parish Martinez DO) Degenerative joint disease of cervical and lumbar spine Depression Herpes genitalia Hip pain, bilateral Inflammatory arthritis Rotator cuff arthropathy of right shoulder Surgical History Surgical History No pertinent past surgical history Social History Social History Smoking status: Current every day smoker Tobacco type: e-cigarettes/vaping Alcohol intake: current Substance use: current Substance use type: marijuana Lack of Transportation: No Lack of Food: Never True Current Housing: I Have Housing Concerned About Future Housing: No Difficulty Paying Gas/Electric Bills: No Difficulty Paying for Meds: No Currently Unemployed: No Education: High School Diploma/GED Difficulty w/ Childcare or Family Care: No Gender identity (if verbalized by the patient): Female Comments At time of signature, I have reviewed and agree with nursing past medical, surgical, social and family history unless otherwise noted. Please see the nursing chart for further information. There is no relevant family history pertinent to the presenting complaint. Exam Narrative: CONST: No acute distress. Well nourished. HENMT: Head is normocephalic and atraumatic. Moist mucous membranes. No posterior oropharynx erythema. Bilateral nasal turbid edema. Small oozing blood coming from the right anterior nasal septum. No nasal septal hematoma. Scant dried blood present around the right nasal passage. EYES: No conjunctival icterus, injection, or pallor. PERRL. NECK: No meningeal signs. RESP: Able to speak in full sentences. Normal respiratory effort. CTAB. CARDIO: Regular rate. Regular rhythm. 2+ DP and radial pulses bilaterally. GI: Nondistended. No tenderness to palpation. Soft. : No CVA tenderness to palpation. SKIN: No rashes or lesions noted on exposed skin. NEURO: Oriented x3. Moves all extremities. EXTREM/MSK/BA
[2023-11-16] MEDS: OXYMETAZOLINE HCL 0.05% NAS 15 ML BTL (*BKC) 1 SPRAY NASAL (22:56)
[2023-11-17 00:02] VITALS: BP 114/70; PULSE 67; RESP 14; TEMP 36.6; O2SAT 99
== END 2023-11-17 00:03 | disposition home or self-care (01) ==
PROVIDERS: Emergency Provider Student in an Organized Health Care Education/Training Program; PCP Nurse Practitioner Family
DX: R04.0 Epistaxis (principal); F17.290 Nicotine dependence, other tobacco product, uncomplicated
CPT/HCPCS: 99283; A9270

== ENCOUNTER 2025-05-26 11:41 | Outpatient (CLI) | payer BC, SELFPAY ==
--- OUTSIDE RECORDS SUMMARY | 2025-05-26 11:46 | XMS_ITS | Patient Health Record ---
Author Organization [facility] Address [address] [facility] [place] [address] Care Team Providers Care Bingo Checker Name Role Phone Dr. Nay Garza Primary Care Provider [phone] Sunshine Hodge Unavailable [phone] Migration, Provider Unavailable Unavailable Allergies Allergen (clinical drug ingredient) Drug/Non Drug Allergy documented on EMR Reaction Allergy Type Onset Date Status Dust Mites Unknown Allergy 03/04/2021 Active Pollen (e.g. tree, grass) Unknown Allergy 03/04/2021 Active Results Component Value Reference Range Flag Notes Celiac Serology Profile-[facility] Reviewed date:05/20/2025 08:46:31 PM Interpretation: Performing Lab: Notes/Report: TTG Ab, IgG See Below Chart Name Results Units Flag Ref Range Tissue Transglutaminase Ab IgG 1.11 0.00-4.99 INTERPRETIVE INFORMATION: Tissue Transglutaminase Ab, IgG In individuals with low or deficient IgA, testing for tissue transglutaminase (tTG) and deamidated Gliadin (DGP) antibodies of the IgG isotype is performed. Positive tTG and/or DGP IgG antibody results indicate celiac disease; however, small intestinal biopsy is required to establish a diagnosis due to the lower accuracy of these markers, especially in patients without IgA deficiency. Performed By: [facility] [address] [place] [id number] Conservation Policy Analyst: Doe Cheng MD, PhD CLIA Number: [id number] Gliadin See Below Chart Name Results Units Flag Ref Range Gliadin Peptide Ab, IgA 0.90 0.00-4.99 INTERPRETIVE INFORMATION: Deamidated Gliadin Peptide (DGP) Ab, IgA A positive deamidated gliadin (DGP) IgA antibody result is associated with celiac disease but is not to be used as an initial screening test due to its low specificity and only occasional positivity in celiac disease patients who are negative for tissue transglutaminase (tTG) IgA antibody. Gliadin Peptide Ab, IgG <0.56 0.00-4.99 INTERPRETIVE INFORMATION: Deamidated Gliadin Peptide (DGP) Ab, IgG In individuals with low or deficient IgA, testing for tissue transglutaminase (tTG) and deamidated Gliadin (DGP) antibodies of the IgG isotype is performed. Positive tTG and/or DGP IgG antibody results indicate celiac disease; however, small intestinal biopsy is required to establish a diagnosis due to the lower accuracy of these markers, especially in patients without IgA deficiency. Performed By: [facility] [address] [place] [address] Conservation Policy Analyst: Doe Cheng MD, PhD CLIA Number: [id number] TTG Ab, IgA See Below Chart Name Results Units Flag Ref Range Tissue Transglutaminase Ab IgA 1.36 0.00-4.99 INTERPRETIVE INFORMATION: Tissue Transglutaminase (tTG) Antibody, IgA Presence of the tissue transglutaminase (tTG) IgA antibody is associated with gluten-sensitive enteropathies such as celiac disease and dermatitis herpetiformis. Individuals with positive results should be confirmed with small intestinal biopsy to establish celiac disease diagnosis. tTG IgA antibody concentrations greater than 50 FLU exhibits higher correlation with results of duodenal biopsies consistent with celiac disease. For antibody concentrations greater than or equal to 5 FLU but less than 10 FLU, additional testing for endomysial (KD) IgA concentrations may improve the positive predictive value for disease. A decrease in tTG IgA antibody concentration after initiation of a gluten-free diet may indicate a response to therapy. Performed By: [facility] [address] [place] [address] Conservation Policy Analyst: Doe Cheng MD, PhD CLIA Number: [id number] IgA See Below Chart Name Results Units Flag Ref Range Immunoglobulin A 476 mg/dL H 68-408 Performed By: [facility] [address] [place], [place] [id number] Conservation Policy Analyst: Doe Cheng MD, PhD CLIA Number: [id number] Endomysial Ab IgA See Below Chart Name Results Units Flag Ref Range Endomysial Ab, IgA Titer <1:10 <1:10 INTERPRETIVE INFORMATION: Endomysial Antibody, IgA Titer The endomysial antigen has been identified as the protein cross-linking enzyme known as tissue transglutaminase. Performed By: [facility] [address] [place] [id number] Conservation Policy Analyst: Doe Cheng MD, PhD CLIA Number: [id number] Hemoglobin A1c {Glycosylated } Reviewed date:05/16/2025 04:00:00 PM Interpretation: Performing Lab: Notes/Report: Test Performed by: [place] [id number] Quality Assurance Supervisor Chassis: Eladio Ellsworth DO Hemoglobin A1c 5.6 <=6.4 % Hemoglobin A1C < 5.7% = Normal 5.7-6.4% = Increased risk for future diabetes >=6.5% = Diabetes eAvg Glucose 114 <=117 mg/dL eAG Reference Range <117 mg/dL = Normal 117-137 mg/dL = Increased Risk For Future Diabetes >137 mg/dL = Diabetes Ferritin Reviewed date:05/16/2025 04:00:00 PM Interpretation: Performing Lab: Notes/Report: Test Performed by: [place] [id number] Quality Assurance Supervisor Chassis: Eladio Ellsworth DO Ferritin Lvl 77.8 11.0-306.8 ng/mL Vitamin D 25 Hydroxy Reviewed date:05/16/2025 04:00:01 PM Interpretation: Performing Lab: Notes/Report: Test Performed by: [place] [id number] Quality Assurance Supervisor Chassis: Eladio Ellsworth DO Vitamin D 25 OH 14 30-100 ng/mL L Vitamin D25 Interpretation: Deficient: <= 20 ng/mL Insufficient: 21-29 ng/mL Sufficient: 30-100 ng/mL Upper Safety Limit: >100 ng/mL CBC w Auto Diff Reviewed date:05/16/2025 04:00:01 PM Interpretation: Performing Lab: Notes/Report: Test Performed by: [place] [id number] Quality Assurance Supervisor Chassis: Eladio Ellsworth DO WBC 7.1 4.0-11.7 K/mcL RBC 4.43 3.80-5.41 x10*6/mcL Hgb 14.0 11.3-15.2 g/dL Hct 40.4 33.2-45.3 % MCV 91.2 79.5-98.1 fL MCH 31.5 27.0-34.2 pg MCHC 34.6 31.8-35.3 g/dL RDW 14.4 12.0-16.4 % Platelets 362 149-393 K/mcL MPV 8.5 7.0-11.0 fL Neutro Auto 74.8 45.3-79.0 % Lymph Auto 17.5 11.8-45.9 % [place] Auto 6.7 4.4-12.0 % Eosinophil Auto 0.7 0.0-6.3 % Basophil Auto 0.3 0.2-1.6 % Neutro Absolute 5.3 2.4-8.4 x10*3/mcL Lymph Absolute 1.2 0.8-3.7 x10*3/mcL [place] Absolute 0.5 0.3-1.1 x10*3/mcL Comprehensive Metabolic Pane l Reviewed date:05/16/2025 04:00:01 PM Interpretation: Performing Lab: Notes/Report: Test Performed by: [place] [id number] Quality Assurance Supervisor Chassis: Eladio Ellsworth DO Glucose Lvl 99 74-109 mg/dL ADA risk stratification for diabetes <100 mg/dL = Normal 100-125 mg/dL = Increased risk for future diabetes >=126 mg/dL = Diabetes, if on more than one testing occasion BUN 13 7-25 mg/dL Creatinine Lvl 0.92 0.60-1.20 mg/dL eGFR CKD-EPI 87 >=90 mL/min/1.73 m2 L The CKD-EPI equation is validated in individuals 18 years of age and older. It is less accurate in patients with extremes of muscle mass, restriction of dietary protein, ingestion of creatine, extra-renal metabolism of creatinine, or treatment with medications that affect renal tubular creatinine secretion. GFR Categories in Chronic Kidney Disease (CKD) GFR GFR (mL/min/1.73 Category: square meters): Interpretation: G1 90 or greater Normal or high* G2 60-89 Mild decrease* G3a 45-59 Mild to moderate decrease G3b 30-44 Moderate to severe decrease G4 15-29 Severe decrease G5 14 or less Kidney failure *In the absence of evidence of kidney damage, neither GFR category G1 nor G2 fulfill the criteria for CKD (Kidney Int Suppl 2013;3:1-150) Calcium Lvl 9.6 8.6-10.3 mg/dL Sodium Lvl 139 136-145 mmol/L Potassium Lvl 4.4 3.5-5.1 mmol/L Chloride Lvl 106 98-107 mmol/L CO2 26 21-31 mmol/L Anion Gap 7.3 <=16.0 mmol/L Alk Phos 78 34-104 unit/L Bilirubin Total 1.3 0.3-1.0 mg/dL H Albumin Lvl 4.6 3.5-5.2 g/dL Protein Total 7.8 6.4-8.9 g/dL Albumin/Globulin Ratio 1.4 1.1-2.5 ALT 16 7-52 unit/L AST 26 13-39 unit/L Magnesium Reviewed date:05/16/2025 04:00:01 PM Interpretation: Performing Lab: Notes/Report: Test Performed by: [place] [id number] Quality Assurance Supervisor Chassis: Eladio Ellsworth DO Magnesium Lvl 2.2 1.6-2.4 mg/dL Vitamin B12 Reviewed date:05/16/2025 04:00:01 PM Interpretation: Performing Lab: Notes/Report: Test Performed by: [place] [id number] Quality Assurance Supervisor Chassis: Eladio Ellsworth DO Vitamin B12 Lvl 302 180-914 pg/mL Vitamin B12 Interpretation: Normal Range: 180-914 pg/mL Indeterminate: 140-180 pg/mL Deficient: <140 pg/mL Iron Level and TIBC Reviewed date:05/16/2025 04:00:01 PM Interpretation: Performing Lab: Notes/Report: Test Performed by: [place] [id number] Quality Assurance Supervisor Chassis: Eladio Ellsworth DO Iron Lvl 83 50-212 mcg/dL Transferrin 296 203-362 mg/dL TIBC 415 250-420 mcg/dL Iron Sat 20 20-55 % Free T4 And TSH Reviewed date:05/16/2025 04:00:01 PM Interpretation: Performing Lab: Notes/Report: Test Performed by: [place] [id number] Quality Assurance Supervisor Chassis: Eladio Ellsworth DO T4 Free 0.79 0.60-1.70 ng/dL TSH 2.05 0.45-5.33 mcIU/mL Reason For Referral Reason chronic diarrhea and GI concerns. wanting GI referral for further assistance in assessing this. Diagnosis 1 Unspecified abdomina l pain (R10.9) Diagnosis 2 Chronic diarrhea (K5 2.9) Referral Organization [facility] Referring Provider First Name Sunshine Referring Provider Last Name Ayesha Referring Provider Speciality Nurse Prac titioner Referred Provider Specialty Gastroentero logy General Notes Yeimi Dunlap 05/21 03:15:39 PM CDT >Padmini Galeano Jessica 05/23/2025 10:54:51 AM CDT >Referral faxed to Padmini Galeano Jessica 05/23/2025 10:55:20 AM CDT >Wolf HENRIQUEZ [phone] Referral Priority Routine Medications Medication SIG (Take, Route, Frequency, Duration) Notes Start Date End Date Status lamoTRIgine 100 MG Tablet 1 tablet Orally twice a day; Duration: 90 days Active Ergocalciferol 1.25 MG (62472 UT) Capsule 1 capsule Orally weekly; Duration: 84 days Pt to take 4,000iu thereafter 05/17/2025 Active valACYclovir HCl 1 GM Tablet 1 tablet Orally daily; Duration: 90 days Active Cyanocobalamin 1000 MCG Tablet 1 tablet Orally Once a day; Duration: 30 days 05/17/2025 Active ALPRAZolam 0.25 MG Tablet 1 tablet Orally Twice a day Active Social History Social History Additional Details Category Social Info Options Details Miscellaneous: Occupation: currently emp loyed Drug/Alcohol: Do you smoke marijuana? Adm its Section Notes: Tobacco use: Rarely , Alcoho l use: None Problems Problem Type SNOMED Code ICD Code Onset Dates Problem Status W/U Status Risk Notes Problem Dysmenorrhea (775226555) Menstrual pain (N94.6) Active confirmed Problem Chronic pain (52428152) Other chronic pain (G89.29) 2 Active confirmed Problem Backache (347126474) Dorsalgia, unspecified (M54.9) 2 Active confirmed Problem Health status (557553512) Other specified health status (Z78.9) 2 Active confirmed Problem Vitamin D deficiency (94609348) Vitamin D deficiency, unspecified (E55.9) Active confirmed Problem Low back pain (073462483) Low back pain, unspecified (M54.50) 2 Active confirmed Problem Cyst of left ovary (246057017936804 08) Unspecified ovarian cyst, left side (N83.202) 1 Active confirmed Problem Fibromyalgia (336598184) Fibromyalgia (M79.7) 3 Active confirmed Problem Spasm (82147095) Other muscle spasm (M62.838) 3 Active confirmed Problem Shoulder joint pain (283062058) Pain in unspecified shoulder (M25.519) 4 Active confirmed Problem Rheumatoid arthritis (21728413) Rheumatoid arthritis, unspecified (M06.9) 2 Active confirmed Problem Anxiety disorder (878148270) Anxiety disorder, unspecified (F41.9) 2 Active confirmed Problem Major depression, single episode (17671750) Major depressive disorder, single episode, unspecified (F32.9) 9 Active confirmed Problem Bipolar disorder (90282197) Bipolar disorder, unspecified (F31.9) 3 Active confirmed Problem Herpes simplex viral infection (28319955) Herpesviral infection, unspecified (B00.9) 2 Active confirmed Problem Long-term current use of drug therapy (065217537) Other extermination inspector (current) drug therapy (Z79.899) 2 Active confirmed Problem Abnormal weight gain (252847002) Abnormal weight gain (R63.5) 3 Active confirmed Problem Form of skin change (098476547) Other skin changes (R23.8) 2 Active confirmed Problem Localized swelling, mass and lump, right upper limb (R22.31) 4 Active confirmed Problem Mild intermittent asthma (399697793) Mild intermittent asthma, uncomplicated (J45.20) 2 Active confirmed Problem Migraine without aura, not refractory (disorder) (392999410) Migraine, unspecified, not intractable, without status migrainosus (G43.909) 3 Active confirmed Vital Signs Heart Rate 90 /min 05/15/2025 Temperature 98.2 degrees Fahrenheit 05/15/2025 Respiratory Rate 18 /min 05/15/2025 Height-cm 165.10 cm 05/15/2025 Blood pressure diastolic 82 mm Hg 05/15/2025 Oximetry 98 % 05/15/2025 Weight-kg 84.55 kg 05/15/2025 Height 65.00 in 05/15/2025 Blood pressure systolic 122 mm Hg 05/15/2025 Weight 186.4 lbs 05/15/2025 BMI 31.02 kg/m2 05/15/2025 Encounters Encounter Location Date Provider Diagnosis [address] [address] 08/31/2024 Sunshine Hodge Bipolar disorder, unspecified F31.9 and Other muscle spasm M62.[address] [address] 05/15/2025 Sunshine Hodge Bipolar disorder, unspecified F31.9 ; Anxiety disorder, unspecified F41.9 ; Fibromyalgia M79.7 ; Pre-syncope R55 ; Mild intermittent asthma, uncomplicated J45.20 ; Dorsalgia, unspecified M54.9 ; Chronic diarrhea K52.9 ; Migraine syndrome G43.909 ; Urinary incontinence in female R32 ; Herpes simplex B00.9 and Menstrual pain N94.[address] [address] 09/30/2024 Provider Migration [address] [address] 10/01/2024 Provider Migration [address] [address] 04/02/2025 Sunshine Hodge [address] [address] 05/16/2025 Dr. Nay Garza [address] [address] 05/16/2025 Dr. Nay Garza Vitamin D deficiency, unspecified E55.9 ; Vitamin B12 deficiency E53.8 and Pre-syncope R55 [facility] [address] [place] [address] 05/20/2025 Dr. Nay Garza Assessments Encounter Date Diagnosis (ICD Code) Assessment Notes Treatment Notes Treatment Clinical Notes Section Notes 05/16/2025 Vitamin D deficiency, unspecified (ICD-10 - E55.9) 05/16/2025 Vitamin B12 deficiency (ICD-10 - E53.8) 08/31/2024 Bipolar disorder, unspecified (ICD-10 - F31.9) 08/31/2024 Other muscle spasm (ICD-10 - M62.838) 05/15/2025 Bipolar disorder, unspecified (ICD-10 - F31.9) -She admits that mood comes and goes -Still doing counseling every 2-3 weeks. 05/15/2025 Anxiety disorder, unspecified (ICD-10 - F41.9) -Uses PRN alprazolam, rarely uses them 05/15/2025 Fibromyalgia (ICD-10 - M79.7) -Muscle pain in chest, uipper back, legs etc. -She has seen pain management, she was on lyrica but didn't take a lot of medicaton and stopped it. -Still having tightness in right chest, shoulder, and back 05/16/2025 Pre-syncope (ICD-10 - R55) 05/15/2025 Pre-syncope (ICD-10 - R55) - Presyncopal episodes associated with activity. Differential includes anemia and cardiac dysfunction.- Order blood work - If blood work is negative, proceed with echocardiogram (ultrasound of the heart) to assess cardiac function and structure.- Advise patient to avoid high-intensity aerobic activity until further evaluation is complete 05/15/2025 Mild intermittent asthma, uncomplicated (ICD-10 - J45.20) -Feels breathing is good, doesn't feel that presyncope has anything to do with asthma. -Has albuterol to use as needed 05/15/2025 Dorsalgia, unspecified (ICD-10 - M54.9) -Neck pain, shoulder tightness, pectoralis muscle tightness -Follows with pain management. 05/15/2025 Chronic diarrhea (ICD-10 - K52.9) - Differential includes irritable bowel syndrome, celiac disease, and pancreatic insufficiency.- Order blood tests for celiac disease, comprehensive metabolic panel, and other relevant GI labs.- Order stool sample for pancreatic elastase to assess for pancreatic insufficiency.- Recommend dietary elimination trials: first eliminate lactose for a period, then gluten, to assess for symptom improvement.- Encourage patient to keep a symptom and food diary to help identify potential triggers.- Follow up on lab and stool test results and consider referral to gastroenterology if symptoms persist or worsen. 05/15/2025 Migraine syndrome (ICD-10 - G43.909) - Migraine/headaches, currently managed with rest and non-pharmacologic measures.- Patient avoids frequent use of ibuprofen and finds relief with rest in a dark room.- Monitor headache frequency and severity; consider further evaluation if headaches worsen or become more frequent. 05/15/2025 Urinary incontinence in female (ICD-10 - R32) - Urinary frequency and leakage of unclear etiology. -She is worried about diabetes due to strong family history - Order blood work to rule out diabetes (A1c, fasting glucose). 05/15/2025 Herpes simplex (ICD-10 - B00.9) -Refilled valacyclovir 05/15/2025 Menstrual pain (ICD-10 - N94.6) -Having menstrual cycles despite Nexplanon -Referral to gynecology for further evaluation, including discussion of endometriosis, pelvic pain, and family planning.- Recommend pelvic exam and possible imaging (pelvic ultrasound) as per gynecology.- Discussed history of ovarian cysts and need for ongoing monitoring.- Encourage patient to discuss control options and menstrual regulation with gynecology. Plan Of Treatment Pending Test Test Name Order Date Echocardiogram 05/21/2025 Electrocardiogram (ECG) 05/16/2025 Pancreatic Elastase Fecal by Immunoassay -[facility] 05/15/2025 Insurance Providers Payer Name Payer Address Payer Phone Subscriber Number Group Number Insured Name Patient Relationship to Insured Coverage Start Date Coverage End Date [employer] [address] [place] [address] [id number] Angeline Lance Self - patient is the insured 3 Medical (General) History Medical History History ICD Code Herpesviral infection, unspecified B00.9 Bipolar disorder, unspecified F31.9 Major depressive disorder, single episod e, unspecified F32.9 Anxiety disorder, unspecified F41.9 Migraine, unspecified, not intractable, without status migrainosus G43.909 Other chronic pain G89.29 Mild intermittent asthma, uncomplicated J45.20 Rheumatoid arthritis, unspecified M06.9 Pain in unspecified shoulder M25.519 Pain in right wrist M25.531 Low back pain M54.5 Dorsalgia, unspecified M54.9 Other muscle spasm M62.838 Pain in right arm M79.601 Pain in leg, unspecified M79.606 Pain in right forearm M79.631 Fibromyalgia M79.7 Chest pain, unspecified R07.9 Right upper quadrant pain R10.11 Unspecified abdominal pain R10.9 Localized swelling, mass and lump, right upper limb R22.31 Other skin changes R23.8 Abnormal weight gain R63.5 Other specified health status Z78.9 Other extermination inspector (current) drug therapy Z 79.899 Unspecified ovarian cyst, left side N83. 202 Low back pain, unspecified M54.50 Concussion with loss of consciousness st atus unknown, initial encounter S06.0XAA Surgical History Surgery Date(Month/Year) toe surgery notes; right big toe
--- OUTSIDE RECORDS SUMMARY | 2025-05-26 11:46 | XMS_ITS | Referral Summary ---
Author Organization [facility] [address] [place] [address] Care Team Providers Care Drawing Instructor Name Role Phone No, Physician Primary Care Provider [phone] Allergies No known active allergies Medications ketorolac (TORADOL) 10 mg tablet Take 1 tablet (10 mg total) by mouth every 6 (six) hours as needed for pain 20 tablet 09/27/2024 Active cyclobenzaprine (FLEXERIL) 10 mg tablet Take 1 tablet (10 mg total) by mouth 3 (three) times a day as needed for muscle spasms 30 tablet 09/27/2024 Active Active Problems Problem Noted Date Diagnosed Date Epilepsy with partial complex seizures 5 Arthralgia of hip 03/07/2013 Arthralgia of multiple joints 02/27/2013 Urticaria, unspecified 02/27/2013 Social History Tobacco Use Types Packs/Day Years Used Date Smoking Tobacco: Never Personal Safety Answer Date Recorded Have you ever been in or are you currently in a harmful physical or emotional relationship or is someone making you feel afraid or unsafe? Denies 09/27/2024 Comments Unknown Sex and Gender Information Value Date Recorded Sex Assigned at Not on file Legal Sex Female 5:34 AM CERTIFIED MASSAGE THERAPIST Gender Identity Not on file Sexual Orientation Not on file Last Filed Vital Signs Vital Sign Reading Time Taken Comments Blood Pressure 117/75 09/27/2024 12:48 PM CERTIFIED MASSAGE THERAPIST Pulse 75 09/27/2024 12:48 PM CERTIFIED MASSAGE THERAPIST Temperature 36.9 C (98.4 F) 09/27/2024 12:48 PM CERTIFIED MASSAGE THERAPIST Respiratory Rate 16 09/27/2024 12:4 8 PM CERTIFIED MASSAGE THERAPIST Oxygen Saturation 100% 09/27/2024 12: 48 PM CERTIFIED MASSAGE THERAPIST Inhaled Oxygen Concentration - - Weight 62.6 kg (137 lb 15.8 oz) 018 11:36 AM CDT Height 160 cm (5' 3) 09/27/2024 10:58 AM CERTIFIED MASSAGE THERAPIST Body Mass Index 22.96 02/16/2018 11:36 AM CDT Plan of Treatment Not on file Insurance Care Teams Drawing Instructor Relationship Specialty Start Date End Date No, Physician PCP - General 09/27/24
--- OUTSIDE RECORDS SUMMARY | 2025-05-26 11:46 | XMS_ITS ---
Author Organization [facility] Address [address] [place] [address] Care Team Providers Care Pole Cutter Name Role Phone Dr. Nay Garza Primary Care Provider [phone] Migration, Provider Unavailable Unavailable Allergies Allergen (clinical [...] employed Encounters Encounter Location Date Provider Diagnosis [facility] [address] [place] [address] 10/01/2024 Provider Migration Plan Of Treatment No Information Progress Notes * Angeline CHAPMAN SDOB:[birth year] (25 yo F)Acc No.[id number]:10/01/2024 Patient: Angeline SAM :2000 A ge:24 Y S ex:Female Address:[address] [place] [id number] Subjective: * Chief Complaints: * E MR-Keith [...] grass) : Allergy - Onset Date 03/04/2021 * * Date:
--- OUTSIDE RECORDS SUMMARY | 2025-05-26 11:46 | XMS_ITS | Clinical Summary ---
Author Organization [facility] [address] [place] [address] Care Team Providers Care City Treasurer Name Role Phone No, Physician Primary Care Provider [phone] Allergies No known active allergies Medications ketorolac [...] on file Legal Sex Female 5:34 AM TSO Gender Identity Not on file Sexual Orientation Not on file Obstetrics History Last Filed Vital Signs Vital Sign Reading Time Taken Comments Blood Pressure 117/75 09/27/2024 12:48 PM TSO Pulse 75 09/27/2024 12:48 PM TSO Temperature 36.9 C (98.4 F) 09/27/2024 12:48 PM TSO Respiratory Rate 16 09/27/2024 12:4 8 PM TSO Oxygen Saturation 100% 09/27/2024 12: 48 PM TSO Inhaled Oxygen Concentration - - Weight 62.6 kg (137 lb 15.8 oz) 018 11:36 AM CDT Height 160 cm (5' 3) 09/27/2024 10:58 AM TSO Body Mass Index 22.96 02/16/2018 11:36 AM CDT Plan of Treatment Health Maintenance Due Date Last Done Comments Cervical Cancer Screening 2000 Depression Screening 2000 Hepatitis C Screening 2000 Regular Well Visit/Exam 18-64 01/02/2016 DTaP/Tdap/Td Vaccine (7 - Td or Tdap) 02/07/2019 02/07/2009, 08/09/2002, 01/18/2001, Additional history exists Covid-19 Vaccine ( season) 2024 05/09/2021, 04/18/2021 HPV Vaccines (1 - 3-dose SCDM series) 2025 Influenza Vaccine (#1) 2025 , 09/12/2014, 07/26/2012 Varicella Vaccines Completed 02/07/2009, 02/03/1999 Hepatitis B Screening Completed 08/03/2014 , 2000, 2000, Additional history exists Pneumococcal vaccine <65 Aged Out No longer eligible based on patient's age to complete this topic Insurance Care Teams City Treasurer Relationship Specialty Start Date End Date No, Physician PCP - General 09/27/24
[2025-05-29 11:08] LABS: Pancreatic Elastase, Fecal >800 (>200)
== END 2025-05-26 11:42 | disposition home or self-care (01) ==
LOC: ANHLAB 11:44
PROVIDERS: PCP Nurse Practitioner Family; Visit Provider Nurse Practitioner Family
DX: K52.9 Noninfective gastroenteritis and colitis, unspecified (principal)
CPT/HCPCS: 82653

== ENCOUNTER 2025-06-18 14:33 | Outpatient (CLI) | payer BC, SELFPAY ==
--- NOTE | 2025-06-18 | ECHO_ITS ---
Patient Info Name: Angeline Lance Age: 25 years : 2000 Gender: Female Ht: 65 in Wt: 185 lbs BSA: 1.99 m2 HR: 84 bpm BP: 116 / 77 mmHg Heart Rhythm: Sinus Rhythm Technical Quality: Good Exam Date: 06/18/2025 3:15 PM Patient Status: O Admit Date: 06/18/2025 Exam Type: CA echo doppler color flow Complete two-dimensional, color flow and Doppler transthoracic echocardiogram is performed. Ski Lift Attendant: Danii Dee Attending Provider: Sunshine Hodge Summary 1. Complete two-dimensional, color flow and Doppler transthoracic echocardiogram is performed. 2. Left ventricular chamber dimension is normal. 3. Left ventricular systolic function is normal, estimated at 60-65. 4. The left ventricular diastolic function is normal. 5. E/e' 6 is not elevated. 6. There is trace mitral valve regurgitation. 7. There is mild tricuspid valve regurgitation. 8. No pulmonary hypertension, estimated pulmonary arterial systolic pressure is 24 mmHg. 9. There is trace pulmonic regurgitation. Left Ventricle E/e' 6 is not elevated. Left ventricular chamber dimension is normal. Left ventricular systolic function is normal, estimated at 60-65. The left ventricular diastolic function is normal. Right Ventricle Right ventricular chamber dimension is normal. Right ventricular systolic function is normal and with normal TAPSE 2.2 cm. Left Atria Left atrial chamber dimension is normal. Right Atria Right atrial chamber dimension is normal. Aortic Valve The aortic valve is trileaflet. There is no aortic valve stenosis. There is no aortic valve regurgitation. Pulmonic Valve There is trace pulmonic regurgitation. Mitral Valve There is no mitral valve stenosis. There is trace mitral valve regurgitation. Tricuspid Valve There is mild tricuspid valve regurgitation. No pulmonary hypertension, estimated pulmonary arterial systolic pressure is 24 mmHg. Pericardium/Pleural There is no pericardial effusion. Inferior Vena Cava Normal inferior vena cava with >50% collapse upon inspiration consistent with normal right atrial pressure, 5 mmHg. Aorta The aortic root size at the sinus of Valsalva is normal. Left Ventricular Outflow Tract Name Value Normal LVOT 2D LVOT Diameter 2.0 cm LVOT Doppler LVOT Peak Velocity 93 cm/s LVOT Peak Gradient 3 mmHg LVOT Mean Gradient 2 mmHg LVOT VTI 16 cm LVOT VTI/AV VTI Ratio 0.8 LVOT Stroke Volume 48 ml LVOT CO 3.8 l/min LVOT CI 1.9 l/min/m2 Pulmonic Valve Name Value Normal RVOT Doppler RVOT Peak Velocity 62 cm/s RVOT Peak Gradient 2 mmHg PV Doppler PV Peak Velocity 98 cm/s PV Peak Gradient 4 mmHg Mitral Valve Name Value Normal MV Diastolic Function MV E Peak Velocity 79 cm/s MV A Peak Velocity 40 cm/s MV E/A 2.0 MV Decel Time (PW) 183 ms MV Annular TDI MV E/e' (Septal) 7.5 MV E/e' (Lateral) 6.0 MV E/e' (Average) 6.8 Tricuspid Valve Name Value Normal TV Regurgitation Doppler TR Peak Velocity 216 cm/s TR Peak Gradient 16 mmHg Estimated PAP/RSVP RA Pressure 5 mmHg <=5 PA Systolic Pressure 24 mmHg <36 RV Systolic Pressure 24 mmHg <36 TV Annular TDI TV Lateral Myranda s' Velocity 14.2 cm/s >=9.5 Aorta Name Value Normal Ascending Aorta Ao Root Diameter (MM) 2.4 cm Ao Root Diam Index (MM) 1.2 cm/m2 Aortic Valve Name Value Normal AV Doppler AV Peak Velocity 123 cm/s AV Peak Gradient 6 mmHg AV Mean Gradient 3 mmHg AV VTI 20 cm AV Area (Cont Eq VTI) 2.4 cm2 >=3.0 AV Area (Cont Eq Louis) 2.3 cm2 AV DI (Louis) 0.75 AV Regurgitation 2D LVOT Area 3.0 cm2 Ventricles Name Value Normal LV Dimensions 2D/MM IVS Diastolic Thickness (2D) 0.7 cm 0.6-1.0 LVID Diastole (2D) 4.7 cm 3.8-5.2 LVIW Diastolic Thickness (2D) 0.7 cm 0.6-0.9 LVID Systole (2D) 3.1 cm 2.2-3.5 LVOT Diameter 2.0 cm LV Mass (2D Cubed) 103.14 g 67.00-162.00 LV Mass Index (2D Cubed) 52 g/m2 43-95 Relative Wall Thickness (2D) 0.32 <=0.42 LV Fractional Shortening/Ejection Fraction 2D/MM LV Fractional Shortening (2D) 35 % 27-45 LV EF (2D Teichholz) 64 % LV Diastolic Volume (4C MOD) 64 ml LV EF (4C MOD) 72 % LV Diastolic Volume (2C MOD) 62 ml LV EF (2C MOD) 78 % LV Diastolic Volume (BP MOD) 63 ml 46-106 LV Diastolic Volume Index (BP MOD) 32 ml/m2 29-61 LV Systolic Volume (BP MOD) 16 ml 14-42 LV Systolic Volume Index (BP MOD) 8 ml/m2 8-24 LV EF (BP MOD) 74 % 54-74 LV Diastolic Length (4C) 7.3 cm LV Systolic Length (4C) 5.7 cm LV Stroke Volume (4C MOD) 46 ml Atria Name Value Normal LA Dimensions LA Dimension (MM) 3.5 cm 2.7-3.8 LA Volume (4C A-L) 33 ml LA Volume (BP A-L) 44 ml RA Dimensions RA Systolic Major Ramsay Length (4C) 3.9 cm 2.2-2.8 RA Area (4C) 10.8 cm2 <=18.0 Report Signatures
--- OUTSIDE RECORDS SUMMARY | 2025-06-18 15:39 | XMS_ITS | Continuity of Care Document ---
Author Organization [facility] Address [address] [place] [address] Phone Care Team Providers Care Hand Cloth Cutter Name Role Phone Maxi Barajas MD Unavailable [...] Diagnoses Date Provider Providers Copied on Encounter [facility], [address], [place], [place], [id number] , [place] tel: [phone] [facility] No Information 4 Karl German. [address], [id number] , [place]. tel: [phone] [facility], [address], [place], [place], [id number] , [place] tel: [phone] [facility] Other specified urticariaAllergic rhinitis due to other allergen 4 Karl German. [address], [id number] , [place]. tel: [phone] Referring Provider: Yesica Barajas, [facility] , [place], [address]. [phone] Family History Family Member Type Diagnosis Age At Onset Sister Problem (finding) Allergies, food Payers Payer name Insurance type Covered constitution party ID Authoriza tion(s) [facility] [id number] Social History Type Description Quantity Date Captured [...]
--- OUTSIDE RECORDS SUMMARY | 2025-06-18 15:39 | XMS_ITS | Patient Health Record ---
Author Organization [facility] Address [address] [place] [address] Care Team Providers Care Chemical Project Engineer Name Role Phone Dr. Nay Garza Primary Care Provider [phone] Sunshine Hodge Unavailable [phone] Migration, Provider Unavailable Unavailable Allergies Allergen (clinical drug ingredient) Drug/Non Drug Allergy documented on EMR Reaction Allergy Type Onset Date Status Dust Mites Unknown Allergy 03/04/2021 Active Pollen (e.g. tree, grass) Unknown Allergy 03/04/2021 Active Results Component Value Reference Range Flag Notes Free T4 And TSH Reviewed date:05/16/2025 04:00:01 PM Interpretation: Performing Lab: Notes/Report: Test Performed by: [address] [address] Slitter Operator: Eladio Ellsworth DO T4 Free 0.79 0.60-1.70 ng/dL TSH 2.05 0.45-5.33 mcIU/mL Iron Level and TIBC Reviewed date:05/16/2025 04:00:01 PM Interpretation: Performing Lab: Notes/Report: Test Performed by: [address] [address] Slitter Operator: Eladio Ellsworth DO Iron Lvl 83 50-212 mcg/dL Transferrin 296 203-362 mg/dL TIBC 415 250-420 mcg/dL Iron Sat 20 20-55 % Vitamin B12 Reviewed date:05/16/2025 04:00:01 PM Interpretation: Performing Lab: Notes/Report: Test Performed by: [address] [place] [address] Slitter Operator: Eladio Ellsworth DO Vitamin B12 Lvl 302 180-914 pg/mL Vitamin B12 Interpretation: Normal Range: 180-914 pg/mL Indeterminate: 140-180 pg/mL Deficient: <140 pg/mL Magnesium Reviewed date:05/16/2025 04:00:01 PM Interpretation: Performing Lab: Notes/Report: Test Performed by: [place] [id number] Slitter Operator: Eladio Ellsworth DO Magnesium Lvl 2.2 1.6-2.4 mg/dL Comprehensive Metabolic Pane l Reviewed date:05/16/2025 04:00:01 PM Interpretation: Performing Lab: Notes/Report: Test Performed by: [place] [address] Slitter Operator: Eladio Ellsworth DO Glucose Lvl 99 74-109 [...] 16 7-52 unit/L AST 26 13-39 unit/L CBC w Auto Diff Reviewed date:05/16/2025 04:00:01 PM Interpretation: Performing Lab: Notes/Report: Test Performed by: [place] [id number] Slitter Operator: Eladio Ellsworth DO WBC 7.1 4.0-11.7 K/mcL RBC 4.43 3.80-5.41 x10*6/mcL Hgb 14.0 11.3-15.2 g/dL Hct 40.4 33.2-45.3 % MCV 91.2 79.5-98.1 fL MCH 31.5 27.0-34.2 pg MCHC 34.6 31.8-35.3 g/dL RDW 14.4 12.0-16.4 % Platelets 362 149-393 K/mcL MPV 8.5 7.0-11.0 fL Neutro Auto 74.8 45.3-79.0 % Lymph Auto 17.5 11.8-45.9 % [place] Auto 6.7 4.4-12.0 % Eosinophil Auto 0.7 0.0-6.3 % Basophil Auto 0.3 0.2-1.6 % Neutro Absolute 5.3 2.4-8.4 x10*3/mcL Lymph Absolute 1.2 0.8-3.7 x10*3/mcL [place] Absolute 0.5 0.3-1.1 x10*3/mcL Vitamin D 25 Hydroxy Reviewed date:05/16/2025 04:00:01 PM Interpretation: Performing Lab: Notes/Report: Test Performed by: [place] [id number] Slitter Operator: Eladio Ellsworth DO Vitamin D 25 OH 14 30-100 ng/mL L Vitamin D25 Interpretation: Deficient: <= 20 ng/mL Insufficient: 21-29 ng/mL Sufficient: 30-100 ng/mL Upper Safety Limit: >100 ng/mL Ferritin Reviewed date:05/16/2025 04:00:00 PM Interpretation: Performing Lab: Notes/Report: Test Performed by: [place] [id number] Slitter Operator: Eladio Ellsworth DO Ferritin Lvl 77.8 11.0-306.8 ng/mL Hemoglobin A1c {Glycosylated } Reviewed date:05/16/2025 04:00:00 PM Interpretation: Performing Lab: Notes/Report: Test Performed by: [address] [address] Slitter Operator: Eladio Ellsworth DO Hemoglobin A1c 5.6 <=6.4 % Hemoglobin A1C < 5.7% = Normal 5.7-6.4% = Increased risk for future diabetes >=6.5% = Diabetes eAvg Glucose 114 <=117 mg/dL eAG Reference Range <117 mg/dL = Normal 117-137 mg/dL = Increased Risk For Future Diabetes >137 mg/dL = Diabetes Celiac Serology Profile-RUST Reviewed date:05/20/2025 08:46:31 PM Interpretation: Performing Lab: [...] in patients without IgA deficiency. Performed By: [facility] [address] [place] [address] Sourcing Specialist: Doe Cheng MD, PhD CLIA Number: [id number] Gliadin See Below Chart Name Results Units [...] in patients without IgA deficiency. Performed By: [facility] [address] [place] [address] Sourcing Specialist: Doe Cheng MD, PhD CLIA Number: [id number] TTG Ab, IgA See Below INTERPRETIVE INFORMATION: Tissue Transglutaminase (tTG) Antibody, IgA [...] indicate a response to therapy. Performed By: [facility] [address] [place] [address] Sourcing Specialist: Doe Cheng MD, PhD CLIA Number: [id number] Chart Name Results Units Flag Ref Range Tissue Transglutaminase Ab IgA 1.36 0.00-4.99 IgA See Below Chart Name Results Units Flag Ref Range Immunoglobulin A 476 mg/dL H 68-408 Performed By: [facility] [address] [place] [address] Sourcing Specialist: Doe Cheng MD, PhD CLIA Number: [id number] Endomysial Ab IgA See Below Chart Name Results Units Flag Ref Range Endomysial Ab, IgA Titer <1:10 <1:10 INTERPRETIVE INFORMATION: Endomysial Antibody, IgA Titer The endomysial antigen has been identified as the protein cross-linking enzyme known as tissue transglutaminase. Performed By: [facility] [address] [place] [address] Sourcing Specialist: Doe Cheng MD, PhD CLIA Number: [id number] Reason For Referral Reason chronic diarrhea and GI concerns. wanting GI referral for further assistance in assessing this. Diagnosis 1 Unspecified abdomina l pain (R10.9) Diagnosis 2 Chronic diarrhea (K5 2.9) Referral Organization [facility] Referring Provider First Name Sunshine Referring Provider Last Name Ayesha Referring Provider Speciality Nurse Prac titioner Referred Provider Specialty Gastroentero logy General Notes Yeimi Dunlap 05/21 03:15:39 PM CDT >Padmini Galeano Jessica 05/23/2025 10:54:51 AM CDT >Referral faxed to Padmini Galeano Jessica 05/23/2025 10:55:20 AM CDT >Wolf HENRIQUEZ [phone] Referral Priority Routine Medications Medication SIG (Take, Route, Frequency, Duration) Notes Start Date End Date Status lamoTRIgine 100 MG Tablet 1 tablet Orally twice a day; Duration: 90 days Active Ergocalciferol 1.25 MG (31702 UT) Capsule 1 capsule Orally weekly; Duration: [...] Problem Status W/U Status Risk Notes Problem Vitamin D deficiency (81730624) Vitamin D deficiency, unspecified (E55.9) Active confirmed Problem Dysmenorrhea (901082259) Menstrual pain (N94.6) Active confirmed Problem Chronic pain (38471683) Other chronic pain (G89.29) 2 Active confirmed Problem Rheumatoid arthritis (95260751) Rheumatoid arthritis, unspecified (M06.9) 2 Active confirmed Problem Spasm (81117023) Other muscle spasm (M62.838) 3 Active confirmed Problem Low back pain (722410675) Low back pain, unspecified (M54.50) 2 Active confirmed Problem Abnormal weight gain (442466660) Abnormal weight gain (R63.5) 3 Active confirmed Problem Mild intermittent asthma (324720109) Mild intermittent asthma, uncomplicated (J45.20) 2 Active confirmed Problem Bipolar disorder (44418207) Bipolar disorder, unspecified (F31.9) 3 Active confirmed Problem Health status (417508095) Other specified health status (Z78.9) 2 Active confirmed Problem Form of skin change (790936949) Other skin changes (R23.8) 2 Active confirmed Problem Localized swelling, mass and lump, right upper limb (R22.31) 4 Active confirmed Problem Backache (548581966) Dorsalgia, unspecified (M54.9) 2 Active confirmed Problem Shoulder joint pain (094992913) Pain in unspecified shoulder (M25.519) 4 Active confirmed Problem Major depression, single episode (63012465) Major depressive disorder, single episode, unspecified (F32.9) 9 Active confirmed Problem Herpes simplex viral infection (34704330) Herpesviral infection, unspecified (B00.9) 2 Active confirmed Problem Cyst of left ovary (993118368450036 08) Unspecified ovarian cyst, left side (N83.202) 1 Active confirmed Problem Long-term current use of drug therapy (614819994) Other group home (current) drug therapy (Z79.899) 2 Active confirmed Problem Fibromyalgia (751467507) Fibromyalgia (M79.7) 3 Active confirmed Problem Migraine without aura, not refractory (disorder) (380813724) Migraine, unspecified, not intractable, without status migrainosus (G43.909) 3 Active confirmed Problem Anxiety disorder (033859842) Anxiety disorder, unspecified (F41.9) 2 Active confirmed Vital Signs Heart Rate 90 /min 05/15/2025 Temperature 98.2 degrees Fahrenheit 05/15/2025 Respiratory Rate 18 /min 05/15/2025 Height-cm 165.10 cm 05/15/2025 Blood pressure diastolic 82 mm Hg 05/15/2025 Oximetry 98 % 05/15/2025 Weight-kg 84.55 kg 05/15/2025 Height 65.00 in 05/15/2025 Blood pressure systolic 122 mm Hg 05/15/2025 Weight 186.4 lbs 05/15/2025 BMI 31.02 kg/m2 05/15/2025 Encounters Encounter Location Date Provider Diagnosis [address] [address] 08/31/2024 Sunshine Hodge Bipolar disorder, unspecified F31.9 and Other muscle spasm M62.[address] [address] 05/15/2025 Sunshine Hodge Bipolar disorder, unspecified F31.9 ; Anxiety disorder, unspecified F41.9 ; Fibromyalgia M79.7 ; Pre-syncope R55 ; Mild intermittent asthma, uncomplicated J45.20 ; Dorsalgia, unspecified M54.9 ; Chronic diarrhea K52.9 ; Migraine syndrome G43.909 ; Urinary incontinence in female R32 ; Herpes simplex B00.9 and Menstrual pain N94.[address] [address] 09/30/2024 Provider Migration [address] [address] 10/01/2024 Provider Migration [address] [address] 04/02/2025 Sunshine Hodge [address] [address] 05/16/2025 Dr. Nay Garza [address] [address] 05/16/2025 Dr. Nay Garza Vitamin D deficiency, unspecified E55.9 ; Vitamin B12 deficiency E53.8 and Pre-syncope R55 [facility] [address] [place] [address] 05/20/2025 Dr. Nay Garza Assessments Encounter Date Diagnosis (ICD Code) Assessment Notes Treatment Notes Treatment Clinical Notes Section Notes 05/16/2025 Vitamin D deficiency, unspecified (ICD-10 - E55.9) 05/16/2025 Vitamin B12 deficiency (ICD-10 - E53.8) 05/15/2025 Bipolar disorder, unspecified (ICD-10 - F31.9) -She admits that mood comes and goes -Still doing counseling every 2-3 weeks. 05/15/2025 Anxiety disorder, unspecified (ICD-10 - F41.9) -Uses PRN alprazolam, rarely uses them 08/31/2024 Bipolar disorder, unspecified (ICD-10 - F31.9) 08/31/2024 Other muscle spasm (ICD-10 - M62.838) 05/15/2025 Fibromyalgia (ICD-10 - M79.7) -Muscle pain [...] Test Test Name Order Date Echocardiogram 05/21/2025 Pancreatic Elastase Fecal by Immunoassay -[facility] 05/15/2025 Insurance Providers Payer Name Payer Address Payer Phone Subscriber Number Group Number Insured Name Patient Relationship to Insured Coverage Start Date Coverage End Date [employer] [address] [place] [address] [id number] Angeline Lance Self - patient is the [...] R63.5 Other specified health status Z78.9 Other meterman (current) drug therapy Z 79.899 Unspecified ovarian cyst, left side N83. 202 Low back pain, unspecified M54.50 Concussion with loss of consciousness [facility] unknown, initial encounter S06.0XAA Surgical History Surgery Date(Month/Year) toe surgery notes; right big toe
--- OUTSIDE RECORDS SUMMARY | 2025-06-18 15:39 | XMS_ITS | Clinical Summary ---
Author Organization [facility] [address] [place] [address] Care Team Providers Care Police Officer Booking Name Role Phone No, Physician Primary Care Provider [phone] Allergies No known active allergies Medications ketorolac [...] on file Legal Sex Female 5:34 AM KETTLE FIRER Gender Identity Not on file Sexual Orientation Not on file Obstetrics History Last Filed Vital Signs Vital Sign Reading Time Taken Comments Blood Pressure 117/75 09/27/2024 12:48 PM KETTLE FIRER Pulse 75 09/27/2024 12:48 PM KETTLE FIRER Temperature 36.9 C (98.4 F) 09/27/2024 12:48 PM KETTLE FIRER Respiratory Rate 16 09/27/2024 12:4 8 PM KETTLE FIRER Oxygen Saturation 100% 09/27/2024 12: 48 PM KETTLE FIRER Inhaled Oxygen Concentration - - Weight 62.6 kg (137 lb 15.8 oz) 018 11:36 AM CDT Height 160 cm (5' 3) 09/27/2024 10:58 AM KETTLE FIRER Body Mass Index 22.96 02/16/2018 11:36 AM [...] to complete this topic Insurance Care Teams Police Officer Booking Relationship Specialty Start Date End Date No, Physician PCP - General 09/27/24
--- OUTSIDE RECORDS SUMMARY | 2025-06-18 15:39 | XMS_ITS ---
Author Organization [facility] Address [address] [place] [address] Care Team Providers Care Merchant Patroller Name Role Phone Dr. Nay Garza Primary Care Provider [phone] Migration, Provider Unavailable Unavailable Allergies Allergen (clinical [...] employed Encounters Encounter Location Date Provider Diagnosis [facility] [address] [place] [address] 10/01/2024 Provider Migration Plan Of Treatment No Information Progress Notes * Angeline CHAPMAN SDOB:[birth year] (25 yo F)Acc No.[id number]:10/01/2024 Patient: Angeline SAM :2000 A ge:24 Y S ex:Female Address:[address] [place] [address] Subjective: * Chief Complaints: * E MR-Keith [...]
== END 2025-06-18 14:34 | disposition home or self-care (01) ==
PROVIDERS: PCP Nurse Practitioner Family; Visit Provider Nurse Practitioner Family
DX: R55 Syncope and collapse (principal)
CPT/HCPCS: 93306

== ENCOUNTER 2025-07-26 15:58 | Outpatient (NON) | payer BC, SELFPAY ==
--- OUTSIDE RECORDS SUMMARY | 2014-06-14 16:07 | XMS_ITS | Continuity of Care Document ---
Author Organization [facility] Address [address] [place] [address] Phone Care Team Providers Care Clinical Application Manager Name Role Phone Maxi Barajas MD Unavailable [...] Diagnoses Date Provider Providers Copied on Encounter [facility], [address], [place], [place], [id number] , [place] tel: [phone] [facility] No Information 4 Karl German. [address], [id number] , [place]. tel: [phone] [facility], [address], [place], [place], [address] , [place] tel: [phone] [facility] Other specified urticariaAllergic rhinitis due to other allergen 4 Karl German. [address], [id number] , [place]. tel: [phone] Referring Provider: Yesica Barajas, [facility] , [place], [address]. [phone] Family History Family Member Type Diagnosis Age At Onset Sister Problem (finding) Allergies, food Payers Payer name Insurance type Covered republican ID Authoriza tion(s) [facility] [id number] Social History Type Description Quantity Date Captured [...]
--- OUTSIDE RECORDS SUMMARY | 2024-09-30 04:00 | XMS_ITS ---
Author Organization [facility] Address [address] [place] [address] Care Team Providers Care Deputy Felony Clerk Name Role Phone Dr. Nay Garza Primary Care Provider [phone] Migration, Provider Unavailable Unavailable REASON FOR VISIT EMR-Keith Encounters Encounter Location Date Provider Diagnosis [facility] [address] [place] [address] 09/30/2024 Provider Migration Plan Of Treatment Medication Medication Name Sig Start Date Stop Date Notes Topiramate 50 MG Tablet 1 Oral every night at bedtime; Duration: 04/15/2023 07/11/2023 ,discontinuereason:D is continued ALPRAZolam 0.25 MG Tablet 1 Oral two charles es a day; Duration: 07/04/2024 07/18/2024 ,PRN Reason:for anxiety lamoTRIgine ER 100 MG Tablet Extended Release 24 Hour 1 Oral every day; Duration: 04/15/2023 07/11/2023 Dose changed from ER 100mg daily to 100mg BID,discontinuereason: Discontinued Montelukast Sodium 10 MG Tablet 1 Oral every night at bedtime; Duration: 04/17/2022 07/15/2022 ergocalciferol (vitamin D2) 1,250 mcg (50,000 unit) Capsule 1 BY MOUTH once a week; Duration: 06/11/2022 03/15/2023 ,discontinuereason:D is continued *Reorder from [facility] for eRx and Interaction Alerts* lamoTRIgine ER 50 MG Tablet Extended Release 24 Hour 1 Oral every evening; Duration: 30 03/16/2023 07/11/2023 ,discontinuereason:D is continued predniSONE 20 MG Tablet 2 Oral every day; Duration: 0 08/31/2024 08/31/2024 Topiramate 25 MG Tablet 1 Oral every evening; Duration: 30 03/16/2023 04/14/2023 ,discontinuereason:D is continued Methocarbamol oral; Duration: 0 12/03/2022 03/15/2023 ,discontinuereason:D is continued *Pick strength-form from [employer] for eRX* Voltaren Arthritis Pain 1 % topical; Duration: 0 06/19/2022 03/15/2023 ,discontinuereason:D is continued *Pick strength-form from [employer] for eRX* LaMICtal 100 MG Tablet 1 Oral two times a day; Duration: 90 01/25/2024 07/22/2024 ,discontinuereason:R ef illed LaMICtal 25 MG Tablet 1 Oral every evening; Duration: 14 09/10/2022 09/23/2022 busPIRone HCl 5 MG Tablet 1 Oral two charles es a day; Duration: 30 06/05/2022 09/17/2022 no longer taking,discontinuereas on:Discontinued,PRN Reason:for anxiety Pregabalin 50 MG Capsule 1 Oral two time s a day; Duration: 30 12/03/2022 2023 valACYclovir HCl 1 GM Tablet 1 Oral every day; Duration: 04/15/2023 01/24/2024 ,discontinuereason:R ef illed Azithromycin 250 MG Tablet Oral; Duration: 0 09/10/2022 09/10/2022 Nortriptyline HCl 10 MG Capsule 1 Oral every night at bedtime; Duration: 0 03/04/2021 04/17/2021 ,discontinuereason:R ef illed vilazodone 20 mg Tablet(s) 1.5 BY MOUTH every day; Duration: 0 11/19/2023 08/30/2024 ,discontinuereason:D is continued *Reorder from [employer] for eRx and Interaction Alerts* Lyrica 25 MG Capsule 1 Oral two times a day; Duration: 09/21/2024 09/21/2024 Rx Refill Request,discontinuerea son:Refilled DULoxetine HCl 30 MG Capsule Delayed Release Particles 1 Oral every day; Duration: 30 09/04/2022 09/09/2022 ,discontinuereason:D is continued Progress Notes * Angeline CHAPMAN SDOB:[birth year] (25 yo F)Acc No.[id number]:09/30/2024 Patient: Angeline SAM S :2000 A ge:24 Y S ex:Female Address:[address] [place] [address], [phone] * Refills Stop valACYclovir HCl Tablet, 1 GM, Oral, 30, 1, every day, 30 Stop Voltaren Arthritis Pain, 1 %, topical, 0 Stop LaMICtal Tablet, 100 MG, Oral, 180, 1, two times a day, 90 Stop valACYclovir HCl Tablet, 1 GM, Oral, 30, 1, every day, 30 Stop Montelukast Sodium Tablet, 10 MG, Oral, 30, 1, every night at bedtime, 30 Stop ergocalciferol (vitamin D2) Capsule, 1,250 mcg (50,000 unit), BY MOUTH, 8, 1, once a week, 0 Stop Azithromycin Tablet, 250 MG, Oral, 6, 0 Stop valACYclovir HCl Tablet, 1 GM, Oral, 30, 1, every day, 30 Stop valACYclovir HCl Tablet, 1 GM, Oral, 1, every day, 0 Stop valACYclovir HCl Tablet, 1 GM, Oral, 30, 1, every day, 30 Stop LaMICtal Tablet, 25 MG, Oral, 14, 1, every evening, 14 Stop Pregabalin Capsule, 50 MG, Oral, 60, 1, two times a day, 30 Stop ALPRAZolam Tablet, 0.25 MG, Oral, 20, 1, two times a day, 0 Stop LaMICtal Tablet, 100 MG, Oral, 180, 1, two times a day, 90 Stop Topiramate Tablet, 50 MG, Oral, 30, 1, every night at bedtime, 30 Stop valACYclovir HCl Tablet, 1 GM, Oral, 30, 1, every day, 30 Stop Nortriptyline HCl Capsule, 10 MG, Oral, 1, every night at bedtime, 0 Stop valACYclovir HCl Tablet, 1 GM, Oral, 30, 1, every day, 30 Stop valACYclovir HCl Tablet, 1 GM, Oral, 30, 1, every day, 30 Stop vilazodone Tablet(s), 20 mg, BY MOUTH, 1.5, every day, 0 Stop ALPRAZolam Tablet, 0.25 MG, Oral, 30, 1, two times a day, 30 Stop ALPRAZolam Tablet, 0.25 MG, Oral, 30, 1, two times a day, 15 Stop valACYclovir HCl Tablet, 1 GM, Oral, 30, 1, every day, 30 Stop lamoTRIgine ER Tablet Extended Release 24 Hour, 50 MG, Oral, 14, 1, every evening, 14 Stop lamoTRIgine ER Tablet Extended Release 24 Hour, 50 MG, Oral, 30, 1, every evening, 30 Stop lamoTRIgine ER Tablet Extended Release 24 Hour, 100 MG, Oral, 30, 1, every day, 30 Stop valACYclovir HCl Tablet, 1 GM, Oral, 30, 1, every day, 30 Stop valACYclovir HCl Tablet, 1 GM, Oral, 30, 1, every day, 30 Stop busPIRone HCl Tablet, 5 MG, Oral, 60, 1, two times a day, 30 Stop Topiramate Tablet, 25 MG, Oral, 30, 1, every evening, 30 Stop lamoTRIgine ER Tablet Extended Release 24 Hour, 50 MG, Oral, 30, 1, every evening, 30 Stop DULoxetine HCl Capsule Delayed Release Particles, 30 MG, Oral, 30, 1, every day, 30 Stop Lyrica Capsule, 25 MG, Oral, 60, 1, two times a day, 30 Stop lamoTRIgine ER Tablet Extended Release 24 Hour, 50 MG, Oral, 28, 2, every evening, 14 Stop Methocarbamol, oral, 0 Stop predniSONE Tablet, 20 MG, Oral, 13, 2, every day, 0 Stop valACYclovir HCl Tablet, 1 GM, Oral, 30, 1, every day, 30 Stop valACYclovir HCl Tablet, 1 GM, Oral, 30, 1, every day, 30 Stop valACYclovir HCl Tablet, 1 GM, Oral, 30, 1, every day, 30 Stop lamoTRIgine ER Tablet Extended Release 24 Hour, 50 MG, Oral, 14, 1, every evening, 14 Subjective: * Chief Complaints: * E MR-Keith Objective: Past Vitals:* 08/31/2024 BP: 128/82 mm Hg, HR: 84 /mi n, Oxygen sat %: 98 %, Wt: 186.25 lbs, Wt-k.48 kg * 07/12/2023 BP: 136/70 mm Hg, HR: 82 /mi n, Oxygen sat %: 98 %, Wt: 164.99 lbs, Wt-k.84 kg * * Date:
--- OUTSIDE RECORDS SUMMARY | 2024-10-01 04:00 | XMS_ITS ---
Author Organization [facility] Address [address] [place] [address] Care Team Providers Care Gluer Name Role Phone Dr. Nay Garza Primary Care Provider [phone] Migration, Provider Unavailable Unavailable Allergies Allergen (clinical drug ingredient) Drug/Non Drug Allergy documented on EMR Reaction Allergy Type Onset Date Status Dust Mites Unknown Allergy 03/04/2021 Active Pollen (e.g. tree, grass) Unknown Allergy 03/04/2021 Active REASON FOR VISIT EMR-Keith Medications Medication SIG (Take, Route, Frequency, Duration) Notes Start Date End Date Status tiZANidine HCl 4 MG Capsule 1 Oral three times a day; Duration: 0 ,PRN Reason:for back pain 08/31/2024 Active LaMICtal 100 MG Tablet 1 Oral every day; Duration: 90 08/31/2024 02/26/2025 Active Lyrica 25 MG Capsule 1 Oral two times a day; Duration: 30 09/21/2024 10/20/2024 Active valACYclovir HCl 1 GM Tablet 1 Oral every day; Duration: 30 01/25/2024 01/18/2025 Active Social History Social History Additional Details Category Social Info Options Details Migrated Social History Migrated Social History Employment:Currently employed Encounters Encounter Location Date Provider Diagnosis [facility] [address] [place] [address] 10/01/2024 Provider Migration Plan Of Treatment No Information Progress Notes * Angeline CHAPMAN SDOB:[birth year] (25 yo F)Acc No.[id number]:10/01/2024 Patient: Angeline SAM :2000 A ge:24 Y S ex:Female Address:[address] [place] [phone] Subjective: * Chief Complaints: * E MR-Keith * Social History: M igrated Social History: M igrated Social History: Employment:Currently employed. * Medications: T akingtiZANidine HCl 4 MG Capsule 1 Oral three times a day , Notes to Pharmacist: ,PRN Reason:for back painLaMICtal 100 MG Tablet 1 Oral every day , stop date 02/26/2025Lyrica 25 MG Capsule 1 Oral two times a day , stop date 10/20/2024valACYclovir HCl 1 GM Tablet 1 Oral every day , stop date 01/18/2025Taking tiZANidine HCl 4 MG Capsule 1 Oral three times a day , Notes to Pharmacist: ,PRN Reason:for back painTaking LaMICtal 100 MG Tablet 1 Oral every day , stop date 02/26/2025Taking Lyrica 25 MG Capsule 1 Oral two times a day , stop date 10/20/2024Taking valACYclovir HCl 1 GM Tablet 1 Oral every day , stop date 01/18/2025 * Allergies: D ust Mites: Allergy - Onset Date 03/04/2021ollen (e.g. tree, grass) : Allergy - Onset Date 03/04/2021 Objective: Past Vitals:* 08/31/2024 BP: 128/82 mm Hg, HR: 84 /mi n, Oxygen sat %: 98 %, Wt: 186.25 lbs, Wt-k.48 kg * 07/12/2023 BP: 136/70 mm Hg, HR: 82 /mi n, Oxygen sat %: 98 %, Wt: 164.99 lbs, Wt-k.84 kg * * Date:
--- OUTSIDE RECORDS SUMMARY | 2025-07-26 17:41 | XMS_ITS | Patient Health Record ---
Author Organization [facility] Address [address] [place] [address] Care Team Providers Care Necktie Turner Name Role Phone Dr. Nay Garza Primary Care Provider [phone] Sunshine Hodge Unavailable [phone] Migration, Provider Unavailable Unavailable Allergies Allergen (clinical drug ingredient) Drug/Non Drug Allergy documented on EMR Reaction Allergy Type Onset Date Status Dust Mites Unknown Allergy 03/04/2021 Active Pollen (e.g. tree, grass) Unknown Allergy 03/04/2021 Active Results Component Value Reference Range Flag Notes Celiac Serology Profile-[facility] Reviewed date:05/20/2025 08:46:31 PM Interpretation: Performing Lab: [...] in patients without IgA deficiency. Performed By: [facility] [address] [place] [id number] Defensive Fire Control Systems Operator: Doe Cheng MD, PhD CLIA Number: [id number] Gliadin See Below Chart Name Results Units [...] in patients without IgA deficiency. Performed By: [facility] [address] [place] [address] Defensive Fire Control Systems Operator: Doe Cheng MD, PhD CLIA Number: [id number] TTG Ab, IgA See Below INTERPRETIVE INFORMATION: [...] indicate a response to therapy. Performed By: [facility] [address] [place] [address] Defensive Fire Control Systems Operator: Doe Cheng MD, PhD CLIA Number: [id number] Chart Name Results Units Flag Ref Range Tissue Transglutaminase Ab IgA 1.36 0.00-4.99 IgA See Below Chart Name Results Units Flag Ref Range Immunoglobulin A 476 mg/dL H 68-408 Performed By: [facility] [address] [place] [address] Defensive Fire Control Systems Operator: Doe Cheng MD, PhD CLIA Number: [id number] Endomysial Ab IgA See Below Chart Name Results Units Flag Ref Range Endomysial Ab, IgA Titer <1:10 <1:10 INTERPRETIVE INFORMATION: Endomysial Antibody, IgA Titer The endomysial antigen has been identified as the protein cross-linking enzyme known as tissue transglutaminase. Performed By: [facility] [address] [place] [id number] Defensive Fire Control Systems Operator: Doe Cheng MD, PhD CLIA Number: [id number] Hemoglobin A1c {Glycosylated } Reviewed date:05/16/2025 04:00:00 PM Interpretation: Performing Lab: Notes/Report: Test Performed by: [place] [address] Behaviour Support Teacher: Eladio Ellsworth DO Hemoglobin A1c 5.6 <=6.4 % Hemoglobin A1C < 5.7% = Normal 5.7-6.4% = Increased risk for future diabetes >=6.5% = Diabetes eAvg Glucose 114 <=117 mg/dL eAG Reference Range <117 mg/dL = Normal 117-137 mg/dL = Increased Risk For Future Diabetes >137 mg/dL = Diabetes Ferritin Reviewed date:05/16/2025 04:00:00 PM Interpretation: Performing Lab: Notes/Report: Test Performed by: [place] [address] Behaviour Support Teacher: Eladio Ellsworth DO Ferritin Lvl 77.8 11.0-306.8 ng/mL Vitamin D 25 Hydroxy Reviewed date:05/16/2025 04:00:01 PM Interpretation: Performing Lab: Notes/Report: Test Performed by: [place] [id number] Behaviour Support Teacher: Eladio Ellsworth DO Vitamin D 25 OH 14 30-100 ng/mL L Vitamin D25 Interpretation: Deficient: <= 20 ng/mL Insufficient: 21-29 ng/mL Sufficient: 30-100 ng/mL Upper Safety Limit: >100 ng/mL CBC w Auto Diff Reviewed date:05/16/2025 04:00:01 PM Interpretation: Performing Lab: Notes/Report: Test Performed by: [place] [address] Behaviour Support Teacher: Eladio Ellsworth DO WBC 7.1 4.0-11.7 K/mcL RBC 4.43 3.80-5.41 x10*6/mcL Hgb 14.0 11.3-15.2 g/dL Hct 40.4 33.2-45.3 % MCV 91.2 79.5-98.1 fL MCH 31.5 27.0-34.2 pg MCHC 34.6 31.8-35.3 g/dL RDW 14.4 12.0-16.4 % Platelets 362 149-393 K/mcL MPV 8.5 7.0-11.0 fL Neutro Auto 74.8 45.3-79.0 % Lymph Auto 17.5 11.8-45.9 % Wasatch Auto 6.7 4.4-12.0 % Eosinophil Auto 0.7 0.0-6.3 % Basophil Auto 0.3 0.2-1.6 % Neutro Absolute 5.3 2.4-8.4 x10*3/mcL Lymph Absolute 1.2 0.8-3.7 x10*3/mcL Wasatch Absolute 0.5 0.3-1.1 x10*3/mcL Comprehensive Metabolic Pane l Reviewed date:05/16/2025 04:00:01 PM Interpretation: Performing Lab: Notes/Report: Test Performed by: [place] [address] Behaviour Support Teacher: Eladio Ellsworth DO Glucose Lvl 99 74-109 [...] Interpretation: Performing Lab: Notes/Report: Test Performed by: [place] [id number] Behaviour Support Teacher: Eladio Ellsworth DO Magnesium Lvl 2.2 1.6-2.4 mg/dL Vitamin B12 Reviewed date:05/16/2025 04:00:01 PM Interpretation: Performing Lab: Notes/Report: Test Performed by: [place] [id number] Behaviour Support Teacher: Eladio Ellsworth DO Vitamin B12 Lvl 302 180-914 pg/mL Vitamin B12 Interpretation: Normal Range: 180-914 pg/mL Indeterminate: 140-180 pg/mL Deficient: <140 pg/mL Iron Level and TIBC Reviewed date:05/16/2025 04:00:01 PM Interpretation: Performing Lab: Notes/Report: Test Performed by: [place] [id number] Behaviour Support Teacher: Eladio Ellsworth DO Iron Lvl 83 50-212 mcg/dL Transferrin 296 203-362 mg/dL TIBC 415 250-420 mcg/dL Iron Sat 20 20-55 % Free T4 And TSH Reviewed date:05/16/2025 04:00:01 PM Interpretation: Performing Lab: Notes/Report: Test Performed by: Savanna Huang [place] [id number] Behaviour Support Teacher: Eladio Ellsworth DO T4 Free 0.79 0.60-1.70 ng/dL TSH 2.05 0.45-5.33 mcIU/mL Echocardiogram Reviewed date:06/27/2025 09:21:35 AM Interpretation: Performing Lab: Notes/Report: Reason For Referral Reason chronic diarrhea and GI concerns. wanting GI referral for further assistance in assessing this. Diagnosis 1 Unspecified abdomina l pain (R10.9) Diagnosis 2 Chronic diarrhea (K5 2.9) Referral Organization [facility] Referring Provider First Name Sunshine Referring Provider Last Name Ayesha Referring Provider Speciality Nurse Prac titioner Referred Provider Specialty Gastroentero logy General Notes Yeimi Dunlap 05/21 03:15:39 PM CDT >Padmini Galeano Jessica 05/23/2025 10:54:51 AM CDT >Referral faxed to Padmini Galeano Jessica 05/23/2025 10:55:20 AM CDT >Wolf HENRIQUEZ [phone] Referral Priority Routine Medications Medication SIG (Take, Route, Frequency, Duration) Notes Start Date End Date Status Cyanocobalamin 1000 MCG Tablet 1 tablet Orally Once a day; Duration: 30 days 05/17/2025 Active valACYclovir HCl 1 GM Tablet 1 tablet Orally daily; Duration: 90 days Active Ergocalciferol 1.25 MG (86937 UT) Capsule 1 capsule Orally weekly; Duration: 84 days Pt to take 4,000iu thereafter 05/17/2025 Active ALPRAZolam 0.25 MG Tablet 1 tablet Orally Twice a day Active lamoTRIgine 100 MG Tablet 1 tablet Orally twice a day; Duration: 90 days Active Albuterol Sulfate HFA 108 (90 Base) MCG/ACT Aerosol Solution Inhale 2 puffs Inhalation every 4 to 6 hours As needed 06/29/2025 Active Social History Section Notes: Tobacco use: Rarely , Alcoho l use: None Tobacco use: Rarely , Alcoho l use: None Problems Problem Type SNOMED Code ICD Code Onset Dates Problem Status W/U Status Risk Notes Problem Herpes simplex viral infection (88367063) Herpesviral infection, unspecified (B00.9) 02/08/202 2 Active confirmed Problem Vitamin D deficiency (52523283) Vitamin D deficiency, unspecified (E55.9) Active confirmed Problem Bipolar disorder (87853358) Bipolar disorder, unspecified (F31.9) 3 Active confirmed Problem Major depression, single episode (99406715) Major depressive disorder, single episode, unspecified (F32.9) 9 Active confirmed Problem Anxiety disorder (715121881) Anxiety disorder, unspecified (F41.9) 2 Active confirmed Problem Migraine without aura, not refractory (disorder) (086794373) Migraine, unspecified, not intractable, without status migrainosus (G43.909) 3 Active confirmed Problem Chronic pain (08468251) Other chronic pain (G89.29) 2 Active confirmed Problem Mild intermittent asthma (970760149) Mild intermittent asthma, uncomplicated (J45.20) 2 Active confirmed Problem Rheumatoid arthritis (21483962) Rheumatoid arthritis, unspecified (M06.9) 2 Active confirmed Problem Shoulder joint pain (026234955) Pain in unspecified shoulder (M25.519) 4 Active confirmed Problem Backache (549952403) Dorsalgia, unspecified (M54.9) 2 Active confirmed Problem Spasm (85261488) Other muscle spasm (M62.838) 3 Active confirmed Problem Fibromyalgia (381203582) Fibromyalgia (M79.7) 3 Active confirmed Problem Localized swelling, mass and lump, right upper limb (R22.31) 4 Active confirmed Problem Form of skin change (416394463) Other skin changes (R23.8) 2 Active confirmed Problem Abnormal weight gain (224452064) Abnormal weight gain (R63.5) 3 Active confirmed Problem Health status (723152523) Other specified health status (Z78.9) 2 Active confirmed Problem Long-term current use of drug therapy (164532525) Other shelter (current) drug therapy (Z79.899) 2 Active confirmed Problem Cyst of left ovary (940988877741978 08) Unspecified ovarian cyst, left side (N83.202) 1 Active confirmed Problem Low back pain (328453668) Low back pain, unspecified (M54.50) 2 Active confirmed Problem Vitamin D deficiency (75178936) Vitamin D deficiency (E55.9) Active confirmed Problem Dysmenorrhea (163070521) Menstrual pain (N94.6) Active confirmed Vital Signs Heart Rate 88 /min 07/13/2025 Temperature 97.8 degrees Fahrenheit 07/13/2025 Respiratory Rate 20 /min 07/13/2025 Height-cm 165.1 cm 07/13/2025 Blood pressure diastolic 92 mm Hg 07/13/2025 Oximetry 96 % 07/13/2025 Weight-kg 81.83 kg 07/13/2025 Height 65.00 in 07/13/2025 Blood pressure systolic 112 mm Hg 07/13/2025 Weight 180.4 lbs 07/13/2025 BMI 30.02 kg/m2 07/13/2025 Encounters Encounter Location Date Provider Diagnosis [address] [address] 08/31/2024 Sunshine Beckert Bipolar disorder, unspecified F31.9 and Other muscle spasm M62.[address] [address] 05/15/2025 Sunshine Beckert Bipolar disorder, unspecified F31.9 ; Anxiety disorder, unspecified F41.9 ; Fibromyalgia M79.7 ; Pre-syncope R55 ; Mild intermittent asthma, uncomplicated J45.20 ; Dorsalgia, unspecified M54.9 ; Chronic diarrhea K52.9 ; Migraine syndrome G43.909 ; Urinary incontinence in female R32 ; Herpes simplex B00.9 and Menstrual pain N94.[address] [address] 07/13/2025 Sunshine Beckert Mild intermittent asthma, uncomplicated J45.20 ; Pre-syncope R55 ; Chronic diarrhea K52.9 ; Anxiety disorder, unspecified F41.9 ; Vitamin B12 deficiency E53.8 and Vitamin D deficiency E55.[address] [address] 09/30/2024 Provider Migration [facility] [address] [place] [address] 10/01/2024 Provider Migration [facility] [address] [place] [address] 04/02/2025 Sunshine Hodge [address] [address] 05/16/2025 Dr. Nay Garza [address] [address] 05/16/2025 Dr. Nay Garza Vitamin D deficiency, unspecified E55.9 ; Vitamin B12 deficiency E53.8 and Pre-syncope R55 [address] [address] 05/20/2025 Dr. Nay Garza [address] [address] 06/29/2025 Sunshine Hodge Assessments Encounter Date Diagnosis (ICD Code) Assessment Notes Treatment Notes Treatment Clinical Notes Section Notes 05/16/2025 Vitamin D deficiency, unspecified (ICD-10 - E55.9) 05/16/2025 Vitamin B12 deficiency (ICD-10 - E53.8) 07/13/2025 Pre-syncope (ICD-10 - R55) - Presyncopal episodes have improved, still having SOB -Labwork was unrevealing and echo was normal. -Will get PFT 05/15/2025 Bipolar disorder, unspecified (ICD-10 - F31.9) -She admits that mood comes and goes -Still doing counseling every 2-3 weeks. 05/15/2025 Anxiety disorder, unspecified (ICD-10 - F41.9) -Uses PRN alprazolam, rarely uses them 07/13/2025 Mild intermittent asthma, uncomplicated (ICD-10 - J45.20) - Asthma suspected; differential includes exercise-induced bronchospasm, reflux, and deconditioning. Pulmonary artery hypertension and structural lung changes also considered.-Echo a few weeks ago didn't reveal anything.- Ordered pulmonary function test (PFT) at [place] to evaluate lung function and response to bronchodilator.- Pending PFT results, may consider starting a daily maintenance inhaler in addition to albuterol if asthma is confirmed.- Advised to use a pulse oximeter to monitor oxygen saturation and heart rate during exertion and to document readings.- Encouraged regular aerobic activity as tolerated, such as walking, but advised to avoid extreme or strenuous exercise until further evaluation. 08/31/2024 Bipolar disorder, unspecified (ICD-10 - F31.9) 08/31/2024 Other muscle spasm (ICD-10 - M62.838) 05/15/2025 Fibromyalgia (ICD-10 - M79.7) -Muscle pain in chest, uipper back, legs etc. -She has seen pain management, she was on lyrica but didn't take a lot of medicaton and stopped it. -Still having tightness in right chest, shoulder, and back 07/13/2025 Chronic diarrhea (ICD-10 - K52.9) - Differential includes irritable bowel syndrome, celiac disease, and pancreatic insufficiency.-Flor ac panel was negative, EPI testing was not done -Will have an EGD and colonoscopy on 08/02/25 05/15/2025 Pre-syncope (ICD-10 - R55) - Presyncopal episodes associated with activity. Differential includes anemia and cardiac dysfunction.- Order blood work - If blood work is negative, proceed with echocardiogram (ultrasound of the heart) to assess cardiac function and structure.- Advise patient to avoid high-intensity aerobic activity until further evaluation is complete 05/16/2025 Pre-syncope (ICD-10 - R55) 07/13/2025 Anxiety disorder, unspecified (ICD-10 - F41.9) -Uses PRN alprazolam, rarely uses them. -She feels anxiety is well controlled at the moment 05/15/2025 Mild intermittent asthma, uncomplicated (ICD-10 - J45.20) -Feels breathing is good, doesn't feel that presyncope has anything to do with asthma. -Has albuterol to use as needed 07/13/2025 Vitamin B12 deficiency (ICD-10 - E53.8) -She continues with B12 1,000mcg OTC daily 07/13/2025 Vitamin D deficiency (ICD-10 - E55.9) -Taking vit D 50,000 IU weekly 05/15/2025 Dorsalgia, unspecified (ICD-10 - M54.9) -Neck [...] Treatment Pending Test Test Name Order Date Pulmonary Function Test 07/13/2025 Pancreatic Elastase Fecal by Immunoassay -[facility] 05/15/2025 Insurance Providers Payer Name Payer Address Payer Phone Subscriber Number Group Number Insured Name Patient Relationship to Insured Coverage Start Date Coverage End Date [employer] [address] [place] [address] [id number] Angeline Lance Self - patient is the insured 3 Medical (General) History Medical History History ICD Code Herpesviral infection, unspecified B00.9 Bipolar disorder, unspecified F31.9 Major depressive disorder, single episod e, unspecified F32.9 Anxiety disorder, unspecified F41.9 Migraine, unspecified, not intractable, without status migrainosus G43.909 Other chronic pain G89.29 Mild intermittent asthma, uncomplicated J45.20 Rheumatoid arthritis, unspecified M06.9 Pain in unspecified shoulder M25.519 Dorsalgia, unspecified M54.9 Other muscle spasm M62.838 Fibromyalgia M79.7 Localized swelling, mass and lump, right upper limb R22.31 Other skin changes R23.8 Abnormal weight gain R63.5 Other specified health status Z78.9 Other press tender long goods (current) drug therapy Z 79.899 Unspecified ovarian cyst, left side N83. 202 Low back pain, unspecified M54.50 Surgical History Surgery Date(Month/Year) toe surgery notes; right big toe
--- OUTSIDE RECORDS SUMMARY | 2025-07-26 17:41 | XMS_ITS | Clinical Summary ---
Author Organization [facility] Address [address] [place] [address] Care Team Providers Care Colorer Machine Name Role Phone Sunshine Bose RN Primary Care Provider Unava ilable Allergies No known active allergies Medications azithromycin (ZITHROMAX Z-PUJA) 250 MG tabletIndication s:Non-recurrent acute suppurative otitis media of left ear without spontaneous rupture of tympanic membrane Take 2 tablets by mouth on day one then 1 daily for four days. 6 tablet 10/05/2019 Active Social History Tobacco Use Types Packs/Day Years Used Date Smoking Tobacco: Never Smokeless Tobacco: Never Comments No Sex and Gender Information Value Date Recorded Sex Assigned at Not on file Legal Sex Female 4:26 PM CDT Gender Identity Not on file Sexual Orientation Not on file Last Filed Vital Signs Vital Sign Reading Time Taken Comments Blood Pressure 122/64 10/05/2019 4:54 PM ROOF BOLTER Pulse 90 10/05/2019 4:54 PM ROOF BOLTER Temperature 36.8 C (98.3 F) 10/05/2019 4:54 PM ROOF BOLTER Respiratory Rate 18 10/05/2019 4:54 PM ROOF BOLTER Oxygen Saturation 98% 10/05/2019 4:54 PM ROOF BOLTER Inhaled Oxygen Concentration - - Weight 76.8 kg (169 lb 6.4 oz) 10/05/2019 4:54 P M ROOF BOLTER Height 165.1 cm (5' 5) 10/05/2019 4:54 PM ROOF BOLTER Body Mass Index 28.19 10/05/2019 4:54 PM ROOF BOLTER Plan of Treatment Health Maintenance Due Date Last Done Comments Cervical Cancer Screening Pa p Smear (Age 21 to 29) Every 3 Years 1998 Cervical Cancer Screening 1998 Annual Physical 2001 Hepatitis C 01/02/2016 DTaP, Tdap and Td Vaccines ( 3 - Tdap) 2017 08/09/2002, 01/18/2001 Hepatitis B Vaccines (1 of 3 - 19+ 3-dose series) 2017 HPV Vaccines (1 - 3-dose SCD M series) 2025 COVID-19 Vaccine (1 - 2023-2 5 season) 2025 Meningococcal Vaccine Completed 09/12/2014 Meningococcal B Vaccine Aged Out No l onger eligible based on patient's age to complete this topic Pneumococcal Vaccine: Pediatrics (0 to 5 Years) and At-Risk Patients (6 to 49 Years) Aged Out No longer eligible b ased on patient's age to complete this topic RSV Immunizations Under 20 Months Aged Out No longer eligible b ased on patient's age to complete this topic Insurance Care Teams Colorer Machine Relationship Specialty Start Date End Date Sunshine Bose, RN PCP - General REGISTERED NURSE 08/01/19
--- OUTSIDE RECORDS SUMMARY | 2025-07-26 17:41 | XMS_ITS | Clinical Summary ---
Author Organization [facility] [address] [place] [address] Care Team Providers Care Rn House Supervisor Name Role Phone No, Physician Primary Care Provider [phone] Allergies No known active allergies Medications ketorolac [...] on file Legal Sex Female 5:34 AM PODIATRY ASSISTANT Gender Identity Not on file Sexual Orientation Not on file Obstetrics History Last Filed Vital Signs Vital Sign Reading Time Taken Comments Blood Pressure 117/75 09/27/2024 12:48 PM PODIATRY ASSISTANT Pulse 75 09/27/2024 12:48 PM PODIATRY ASSISTANT Temperature 36.9 C (98.4 F) 09/27/2024 12:48 PM PODIATRY ASSISTANT Respiratory Rate 16 09/27/2024 12:4 8 PM PODIATRY ASSISTANT Oxygen Saturation 100% 09/27/2024 12: 48 PM PODIATRY ASSISTANT Inhaled Oxygen Concentration - - Weight 62.6 kg (137 lb 15.8 oz) 018 11:36 AM CDT Height 160 cm (5' 3) 09/27/2024 10:58 AM PODIATRY ASSISTANT Body Mass Index 22.96 02/16/2018 11:36 AM CDT Plan of Treatment Health Maintenance Due Date Last Done Comments Cervical Cancer Screening 1998 Depression Screening 1998 Hepatitis C Screening 1998 Regular Well Visit/Exam 18-64 01/02/2016 DTaP/Tdap/Td Vaccine (7 - Td or Tdap) 02/07/2019 02/07/2009, 08/09/2002, 01/18/2001, Additional history exists HPV Vaccines (1 - 3-dose SCDM series) 2025 Covid-19 Vaccine ( season) 2025 05/09/2021, 04/18/2021 Influenza Vaccine (#1) 2025 , 09/12/2014, 07/26/2012 Varicella Vaccines Completed 02/07/2009, 02/03/1999 Hepatitis B Screening Completed 08/03/2014 , 1998, 1998, Additional history exists Pneumococcal vaccine <65 Aged Out No longer eligible based on patient's age to complete this topic Insurance Care Teams Rn House Supervisor Relationship Specialty Start Date End Date No, Physician PCP - General 09/27/24
[2025-07-30 07:08] LABS: Calprotectin, Fecal 27 ug/g (0-120)
== END 2025-07-26 15:59 | disposition home or self-care (01) ==
LOC: ANHLAB 15:59
PROVIDERS: PCP Nurse Practitioner Family; Visit Provider Nurse Practitioner Family
DX: R19.7 Diarrhea, unspecified (principal)
CPT/HCPCS: 83993; 87045; 87046; 87427

== ENCOUNTER 2025-08-02 00:15 | Day surgery (SDC) | payer BC, SELFPAY ==
--- OUTSIDE RECORDS SUMMARY | 2014-06-14 16:07 | XMS_ITS | Continuity of Care Document ---
Author Organization [facility] Address [address] [place] [address] Phone Care Team Providers Care Single Resource Boss Name Role Phone Maxi Barajas MD Unavailable Unavailable Allergies, Adverse Reactions, Alerts Substance Reaction Status Criticality No Known Allergies Active No Inform ation Medications Medication Instructions Dosage Effective Dates (start - stop) Status Comments cetirizine 10 mg tablet take 1 tablet (1 0MG) by oral route every bedtime - Active fexofenadine 180 mg tablet take 1 tablet by oral route every morning 180 MG - Active diphenhydramine 25 mg tablet take 1 - 2 Tablet by oral route every 4 - 6 hours as needed 25 MG - Active fluticasone 50 mcg/actuation nasal spray,suspension spray 2 spray by intranasal route every day in each nostril 100 MCG - Active Problems Condition Type Effective Dates (start - stop) Clini mynor Status Comments No Known Problems Advance Directives Directive Yes / No Effective Date File Name No Information Encounters Encounter Description Practice Location Reason(s) For Visit Diagnoses Date Provider Providers Copied on Encounter [facility], [address], [place], [place], [id number] , [place] tel: [phone] [facility] No Information 4 Karl German. [address], [id number] , [place]. tel: [phone] [facility], [address], [place], [place], [id number] , [place] tel: [phone] [facility] Other specified urticariaAllergic rhinitis due to other allergen 4 Karl German. [address], [id number] , [place]. tel: [phone] Referring Provider: Yesica Barajas, [facility] , [place], [address]. [phone] Family History Family Member Type Diagnosis Age At Onset Sister Problem (finding) Allergies, food Payers Payer name Insurance type Covered constitution party ID Authoriza tion(s) [facility] [id number] Social History Type Description Quantity Date Captured Comments Sex Female Smoking Status No Information Chief Complaint And Reason For Visit No Information Reason For Referral Reason For Referral No Information History Of Present Illness Encounter Date Complaint History Of Prese nt Illness No Information Functional Status Date Functional Assessmen t No Information Instructions Date Instruction Additional Infor mation No Information Assessments Type Assessment Date No Information Patient Care Teams Name Effective Dates (start - stop) Status Members No Information
--- OUTSIDE RECORDS SUMMARY | 2024-09-30 04:00 | XMS_ITS ---
Author Organization [facility] Address [address] [place] [address] Care Team Providers Care Curator Medical Museum Name Role Phone Dr. Nay Garza Primary Care Provider [phone] Migration, Provider Unavailable Unavailable REASON FOR VISIT EMR-Keith Encounters Encounter Location Date Provider Diagnosis [facility] [address] [place] [address] 09/30/2024 Provider Migration Plan Of Treatment Medication [...] 06/11/2022 03/15/2023 ,discontinuereason:D is continued *Reorder from [facility] for eRx and Interaction Alerts* lamoTRIgine ER [...] 03/15/2023 ,discontinuereason:D is continued *Pick strength-form from [employer] for eRX* Voltaren Arthritis Pain 1 % topical; Duration: 0 06/19/2022 03/15/2023 ,discontinuereason:D is continued *Pick strength-form from [employer] for eRX* LaMICtal 100 MG Tablet 1 [...] 11/19/2023 08/30/2024 ,discontinuereason:D is continued *Reorder from [employer] for eRx and Interaction Alerts* Lyrica 25 MG Capsule 1 Oral two times a day; Duration: 09/21/2024 09/21/2024 Rx Refill Request,discontinuerea son:Refilled DULoxetine HCl 30 MG Capsule Delayed Release Particles 1 Oral every day; Duration: 30 09/04/2022 09/09/2022 ,discontinuereason:D is continued Progress Notes * Angeline CHAPMAN SDOB:[birth year] (25 yo F)Acc No.[id number]:09/30/2024 Patient: Angeline SAM S :2000 A ge:24 Y S ex:Female Address:[address] [place] [address], [phone] * Refills Stop valACYclovir HCl Tablet, 1 [...]
--- OUTSIDE RECORDS SUMMARY | 2024-10-01 04:00 | XMS_ITS ---
Author Organization [facility] Address [address] [place] [address] Care Team Providers Care Cashier Parking Lot Name Role Phone Dr. Nay Garza Primary Care Provider [phone] Migration, Provider Unavailable Unavailable Allergies Allergen (clinical [...] employed Encounters Encounter Location Date Provider Diagnosis [facility] [address] [place] [address] 10/01/2024 Provider Migration Plan Of Treatment No Information Progress Notes * Angeline CHAPMAN SDOB:[birth year] (25 yo F)Acc No.[id number]:10/01/2024 Patient: Angeline SAM :2000 A ge:24 Y S ex:Female Address:[address] [place] [phone] Subjective: * Chief Complaints: * E MR-Keith [...]
--- OUTSIDE RECORDS SUMMARY | 2025-08-02 00:18 | XMS_ITS | Clinical Summary ---
Author Organization [facility] Address [address] [place] [address] Care Team Providers Care Buyer Renter Name Role Phone Sunshine Bose RN Primary [...] Comments Blood Pressure 122/64 10/05/2019 4:54 PM TEXTILE SLITTING MACHINE OPERATOR Pulse 90 10/05/2019 4:54 PM TEXTILE SLITTING MACHINE OPERATOR Temperature 36.8 C (98.3 F) 10/05/2019 4:54 PM TEXTILE SLITTING MACHINE OPERATOR Respiratory Rate 18 10/05/2019 4:54 PM TEXTILE SLITTING MACHINE OPERATOR Oxygen Saturation 98% 10/05/2019 4:54 PM TEXTILE SLITTING MACHINE OPERATOR Inhaled Oxygen Concentration - - Weight 76.8 kg (169 lb 6.4 oz) 10/05/2019 4:54 P M TEXTILE SLITTING MACHINE OPERATOR Height 165.1 cm (5' 5) 10/05/2019 4:54 PM TEXTILE SLITTING MACHINE OPERATOR Body Mass Index 28.19 10/05/2019 4:54 PM TEXTILE SLITTING MACHINE OPERATOR Plan of Treatment Health Maintenance Due Date [...] to complete this topic Insurance Care Teams Buyer Renter Relationship Specialty Start Date End Date Sunshine Bose, RN PCP - General REGISTERED NURSE 08/01/19
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
--- OUTSIDE RECORDS SUMMARY | 2025-08-02 00:18 | XMS_ITS | Patient Health Record ---
Author Organization [facility] Address [address] [facility] [place] [address] Care Team Providers Care Take Away Man Name Role Phone Dr. Nay Garza Primary Care Provider [phone] Sunshine Hodge Unavailable [phone] Migration, Provider Unavailable Unavailable Allergies Allergen (clinical drug ingredient) Drug/Non Drug Allergy documented on EMR Reaction Allergy Type Onset Date Status Dust Mites Unknown Allergy 03/04/2021 Active Pollen (e.g. tree, grass) Unknown Allergy 03/04/2021 Active Results Component Value Reference Range Flag Notes Echocardiogram Reviewed date:06/27/2025 09:21:35 AM Interpretation: Performing Lab: Notes/Report: Celiac Serology Profile-[facility] Reviewed date:05/20/2025 08:46:31 PM Interpretation: Performing [...] in patients without IgA deficiency. Performed By: [facility] [employer] [address] [place] [id number] Cathode Ray Tube Assembler: Doe Cheng MD, PhD CLIA Number: [id number] Gliadin See Below Chart Name Results Units [...] in patients without IgA deficiency. Performed By: [facility] [address] [place] [address] [employer] Tube Assembler: Doe Cheng MD, PhD CLIA Number: [id number] TTG Ab, IgA See Below Chart Name [...] indicate a response to therapy. Performed By: [facility] [address] [place] [address] [employer] Tube Assembler: Doe Cheng MD, PhD CLIA Number: [id number] IgA See Below Chart Name Results Units Flag Ref Range Immunoglobulin A 476 mg/dL H 68-408 Performed By: [facility] [address] [place], [place] [id number] [employer] Tube Assembler: Doe Cheng MD, PhD CLIA Number: [id number] Endomysial Ab IgA See Below Chart Name Results Units Flag Ref Range Endomysial Ab, IgA Titer <1:10 <1:10 INTERPRETIVE INFORMATION: Endomysial Antibody, IgA Titer The endomysial antigen has been identified as the protein cross-linking enzyme known as tissue transglutaminase. Performed By: [facility] [address] [place] [address] [employer] Ray Tube Assembler: Doe Cheng MD, PhD CLIA Number: [id number] Hemoglobin A1c {Glycosylated } Reviewed date:05/16/2025 04:00:00 PM Interpretation: Performing Lab: Notes/Report: Test Performed by: [place] [address] [employer] Machine Set Up Operator: Eladio Ellsworth DO Hemoglobin A1c 5.6 <=6.4 % Hemoglobin A1C < 5.7% = Normal 5.7-6.4% = Increased risk for future diabetes >=6.5% = Diabetes eAvg Glucose 114 <=117 mg/dL eAG Reference Range <117 mg/dL = Normal 117-137 mg/dL = Increased Risk For Future Diabetes >137 mg/dL = Diabetes Ferritin Reviewed date:05/16/2025 04:00:00 PM Interpretation: Performing Lab: Notes/Report: Test Performed by: [place] [address] [employer] Machine Set Up Operator: Eladio Ellsworth DO Ferritin Lvl 77.8 11.0-306.8 ng/mL Vitamin D 25 Hydroxy Reviewed date:05/16/2025 04:00:01 PM Interpretation: Performing Lab: Notes/Report: Test Performed by: [place] [address] [employer] B[employer] Machine Set Up Operator: Eladio Ellsworth DO Vitamin D 25 OH 14 30-100 ng/mL L Vitamin D25 Interpretation: Deficient: <= 20 ng/mL Insufficient: 21-29 ng/mL Sufficient: 30-100 ng/mL Upper Safety Limit: >100 ng/mL CBC w Auto Diff Reviewed date:05/16/2025 04:00:01 PM Interpretation: Performing Lab: Notes/Report: Test Performed by: [place] [address] [employer] Machine Set Up Operator: Eladio Ellsworth DO WBC 7.1 4.0-11.7 K/mcL RBC 4.43 3.80-5.41 x10*6/mcL Hgb 14.0 11.3-15.2 g/dL Hct 40.4 33.2-45.3 % MCV 91.2 79.5-98.1 fL MCH 31.5 27.0-34.2 pg MCHC 34.6 31.8-35.3 g/dL RDW 14.4 12.0-16.4 % Platelets 362 149-393 K/mcL MPV 8.5 7.0-11.0 fL Neutro Auto 74.8 45.3-79.0 % Lymph Auto 17.5 11.8-45.9 % Vermilion Auto 6.7 4.4-12.0 % Eosinophil Auto 0.7 0.0-6.3 % Basophil Auto 0.3 0.2-1.6 % Neutro Absolute 5.3 2.4-8.4 x10*3/mcL Lymph Absolute 1.2 0.8-3.7 x10*3/mcL Vermilion Absolute 0.5 0.3-1.1 x10*3/mcL Comprehensive Metabolic Pane l Reviewed date:05/16/2025 04:00:01 PM Interpretation: Performing Lab: Notes/Report: Test Performed by: [place] [address] [employer] Boring Machine Set Up Operator: Eladio Ellsworth DO Glucose Lvl 99 [...] Interpretation: Performing Lab: Notes/Report: Test Performed by: [place] [id number] [employer] Set Up Operator: Eladio Ellsworth DO Magnesium Lvl 2.2 1.6-2.4 mg/dL Vitamin B12 Reviewed date:05/16/2025 04:00:01 PM Interpretation: Performing Lab: Notes/Report: Test Performed by: [place] [id number] [employer] Set Up Operator: Eladio Ellsworth DO Vitamin B12 Lvl 302 180-914 pg/mL Vitamin B12 Interpretation: Normal Range: 180-914 pg/mL Indeterminate: 140-180 pg/mL Deficient: <140 pg/mL Iron Level and TIBC Reviewed date:05/16/2025 04:00:01 PM Interpretation: Performing Lab: Notes/Report: Test Performed by: [place] [id number] [employer] Machine Set Up Operator: Eladio Ellsworth DO Iron Lvl 83 50-212 mcg/dL Transferrin 296 203-362 mg/dL TIBC 415 250-420 mcg/dL Iron Sat 20 20-55 % Free T4 And TSH Reviewed date:05/16/2025 04:00:01 PM Interpretation: Performing Lab: Notes/Report: Test Performed by: [place] [address] [address] [employer] Machine Set Up Operator: Eladio Ellsworth DO T4 Free 0.79 0.60-1.70 ng/dL TSH 2.05 0.45-5.33 mcIU/mL Reason For Referral Reason chronic diarrhea and GI concerns. wanting GI referral for further assistance in assessing this. Diagnosis 1 Unspecified abdomina l pain (R10.9) Diagnosis 2 Chronic diarrhea (K5 2.9) Referral Organization [facility] Referring Provider First Name Sunshine Referring Provider Last Name Ayesha Referring Provider Speciality Nurse Prac titioner Referred Provider Specialty Gastroentero logy General Notes Yeimi Dunlap 05/21 03:15:39 PM CDT >Padmini Galeano Jessica 05/23/2025 10:54:51 AM CDT >Referral faxed to Padmini Galeano Jessica 05/23/2025 10:55:20 AM CDT >Wolf HENRIQUEZ [phone] Referral Priority Routine Medications Medication SIG (Take, Route, Frequency, Duration) Notes Start Date End Date Status Cyanocobalamin 1000 MCG Tablet 1 tablet Orally Once a day; Duration: 30 days 05/17/2025 Active valACYclovir HCl 1 GM Tablet 1 tablet Orally daily; Duration: 90 days Active Ergocalciferol 1.25 MG (10166 UT) Capsule 1 capsule Orally weekly; Duration: [...] Risk Notes Problem Herpes simplex viral infection (75483663) Herpesviral infection, unspecified (B00.9) 02/08/202 2 Active confirmed Problem Vitamin D deficiency (78802944) Vitamin D deficiency, unspecified (E55.9) Active confirmed Problem Bipolar disorder (33534221) Bipolar disorder, unspecified (F31.9) 3 Active confirmed Problem Major depression, single episode (59368482) Major depressive disorder, single episode, unspecified (F32.9) 9 Active confirmed Problem Anxiety disorder (432373215) Anxiety disorder, unspecified (F41.9) 2 Active confirmed Problem Migraine without aura, not refractory (disorder) (611727772) Migraine, unspecified, not intractable, without status migrainosus (G43.909) 3 Active confirmed Problem Chronic pain (98089539) Other chronic pain (G89.29) 2 Active confirmed Problem Mild intermittent asthma (830391870) Mild intermittent asthma, uncomplicated (J45.20) 2 Active confirmed Problem Rheumatoid arthritis (18867881) Rheumatoid arthritis, unspecified (M06.9) 2 Active confirmed Problem Shoulder joint pain (674366941) Pain in unspecified shoulder (M25.519) 4 Active confirmed Problem Backache (971840516) Dorsalgia, unspecified (M54.9) 2 Active confirmed Problem Spasm (09135904) Other muscle spasm (M62.838) 3 Active confirmed Problem Fibromyalgia (513976210) Fibromyalgia (M79.7) 3 Active confirmed Problem Localized swelling, mass and lump, right upper limb (R22.31) 4 Active confirmed Problem Form of skin change (766485322) Other skin changes (R23.8) 2 Active confirmed Problem Abnormal weight gain (512347873) Abnormal weight gain (R63.5) 3 Active confirmed Problem Health status (931425597) Other specified health status (Z78.9) 2 Active confirmed Problem Long-term current use of drug therapy (349312207) Other terminal operator (current) drug therapy (Z79.899) 2 Active confirmed Problem Cyst of left ovary (667511305212174 08) Unspecified ovarian cyst, left side (N83.202) 1 Active confirmed Problem Low back pain (536925089) Low back pain, unspecified (M54.50) 2 Active confirmed Problem Vitamin D deficiency (11264876) Vitamin D deficiency (E55.9) Active confirmed Problem Dysmenorrhea (656950649) Menstrual pain (N94.6) Active confirmed Vital Signs [...] 07/13/2025 Encounters Encounter Location Date Provider Diagnosis [address] [address] 08/31/2024 Sunshine Beckert Bipolar disorder, unspecified F31.9 and Other muscle spasm M62.[address] [address] 05/15/2025 Sunshine Beckert Bipolar disorder, unspecified F31.9 ; Anxiety disorder, unspecified F41.9 ; Fibromyalgia M79.7 ; Pre-syncope R55 ; Mild intermittent asthma, uncomplicated J45.20 ; Dorsalgia, unspecified M54.9 ; Chronic diarrhea K52.9 ; Migraine syndrome G43.909 ; Urinary incontinence in female R32 ; Herpes simplex B00.9 and Menstrual pain N94.[address] [address] 07/13/2025 Sunshine Beckert Mild intermittent asthma, uncomplicated J45.20 ; Pre-syncope R55 ; Chronic diarrhea K52.9 ; Anxiety disorder, unspecified F41.9 ; Vitamin B12 deficiency E53.8 and Vitamin D deficiency E55.[address] [address] 09/30/2024 Provider Migration [facility] [address] [place] [address] 10/01/2024 Provider [facility] [address] [place] [address] 04/02/2025 Sunshine Hodge [address] [address] 05/16/2025 Dr. Nay Garza [address] [address] 05/16/2025 Dr. Nay Garza Vitamin D deficiency, unspecified E55.9 ; Vitamin B12 deficiency E53.8 and Pre-syncope R55 [address] [address] 05/20/2025 Dr. Nay Garza [address] [address] 06/29/2025 Sunshine Hodge Assessments Encounter Date Diagnosis (ICD Code) Assessment Notes Treatment Notes Treatment Clinical Notes Section Notes 05/16/2025 Vitamin D deficiency, unspecified (ICD-10 - E55.9) 05/16/2025 Vitamin B12 deficiency (ICD-10 - E53.8) 07/13/2025 Mild intermittent asthma, uncomplicated (ICD-10 - J45.20) - Asthma suspected; differential includes exercise-induced bronchospasm, reflux, and deconditioning. Pulmonary artery hypertension and structural lung changes also considered.-Echo a few weeks ago didn't reveal anything.- Ordered pulmonary function test (PFT) at [facility] to evaluate lung function and response to [...] extreme or strenuous exercise until further evaluation. 05/15/2025 Bipolar disorder, unspecified (ICD-10 - F31.9) -She admits that mood comes and goes -Still doing counseling every 2-3 weeks. 05/15/2025 Anxiety disorder, unspecified (ICD-10 - F41.9) -Uses PRN alprazolam, rarely uses them 07/13/2025 Pre-syncope (ICD-10 - R55) - Presyncopal episodes have improved, still having SOB -Labwork was unrevealing and echo was normal. -Will get PFT 08/31/2024 Bipolar disorder, unspecified (ICD-10 - F31.9) 08/31/2024 Other muscle spasm (ICD-10 - M62.838) 07/13/2025 Chronic diarrhea (ICD-10 - K52.9) - Differential includes irritable bowel syndrome, celiac disease, and pancreatic insufficiency.-Flor ac panel was negative, EPI testing was not done -Will have an EGD and colonoscopy on 08/02/25 05/15/2025 Fibromyalgia (ICD-10 - M79.7) -Muscle pain [...] aerobic activity until further evaluation is complete 07/13/2025 Anxiety disorder, unspecified (ICD-10 - F41.9) -Uses PRN alprazolam, rarely uses them. -She feels anxiety is well controlled at the moment 07/13/2025 Vitamin B12 deficiency (ICD-10 - E53.8) -She continues with B12 1,000mcg OTC daily 05/15/2025 Mild intermittent asthma, uncomplicated (ICD-10 - J45.20) -Feels breathing is good, doesn't feel that presyncope has anything to do with asthma. -Has albuterol to use as needed 05/15/2025 Dorsalgia, unspecified (ICD-10 - M54.9) -Neck pain, shoulder tightness, pectoralis muscle tightness -Follows with pain management. 07/13/2025 Vitamin D deficiency (ICD-10 - E55.9) -Taking vit D 50,000 IU weekly 05/15/2025 Chronic diarrhea (ICD-10 - K52.9) - [...] Date Coverage End Date [employer] [address] [place] [address] [id number] Angeline Lance Self - patient is the [...] R63.5 Other specified health status Z78.9 Other terminal operator (current) drug therapy Z 79.899 Unspecified ovarian cyst, left side N83. 202 Low back pain, unspecified M54.50 Surgical History Surgery Date(Month/Year) toe surgery notes; right big toe
--- OUTSIDE RECORDS SUMMARY | 2025-08-02 00:19 | XMS_ITS | Clinical Summary ---
Author Organization [facility] [address] [place] [address] Care Team Providers Care Licensed Electrician Name Role Phone No, Physician Primary Care Provider [phone] Allergies No known active allergies Medications ketorolac [...] on file Legal Sex Female 5:34 AM DATE PULLER Gender Identity Not on file Sexual Orientation Not on file Obstetrics History Last Filed Vital Signs Vital Sign Reading Time Taken Comments Blood Pressure 117/75 09/27/2024 12:48 PM DATE PULLER Pulse 75 09/27/2024 12:48 PM DATE PULLER Temperature 36.9 C (98.4 F) 09/27/2024 12:48 PM DATE PULLER Respiratory Rate 16 09/27/2024 12:4 8 PM DATE PULLER Oxygen Saturation 100% 09/27/2024 12: 48 PM DATE PULLER Inhaled Oxygen Concentration - - Weight 62.6 kg (137 lb 15.8 oz) 018 11:36 AM CDT Height 160 cm (5' 3) 09/27/2024 10:58 AM DATE PULLER Body Mass Index 22.96 02/16/2018 11:36 AM [...] to complete this topic Insurance Care Teams Licensed Electrician Relationship Specialty Start Date End Date No, Physician PCP - General 09/27/24
[2025-08-02 12:57] VITALS: BP 114/73; PULSE 84; RESP 16; TEMP 36.4; O2SAT 99; BMI 28.9
[2025-08-02 13:05] LABS: BEDSIDEPREGUCG Negative (Negative)
[2025-08-02] MEDS: LACTATED RINGERS 1,000 ML 150 ML IV CONT (13:07)
[2025-08-02] MEDS: SIMETHICONE ORAL SUSPENSION 20 MG/0.3 ML 30 ML BOTTLE 1.8 ML PO (13:09)
--- NOTE | 2025-08-02 13:17 | WPDANESEPPF ---
Anes - Initial Pre Proc Eval Procedure: Operation Date: 08/02/25 14:15 Proposed Procedures p EGD & Diagnostic Colonoscopy - Carmelo Galindo MD Date/Time: 08/02/25 13:17 Surgeon: Carmelo Galindo MD Pre Op Diagnosis: Nausea, Diarrhea, unspecified Patient Data Age: 25 Gender: F Height: 1.65 m Weight: 78.9 kg Last Vital Signs Temp 36.4 C 08/02/25 12:57 Pulse 84 08/02/25 12:57 Resp 16 08/02/25 12:57 BP 114/73 08/02/25 12:57 Pulse Ox 99 08/02/25 12:57 O2 Del Method Room Air 08/02/25 12:57 Allergies Allergy/AdvReac Type Severity Reaction Status Date / Time No Known Allergies Allergy Verified 08/02/25 12:55 Home Medications ?Medication ?Instructions ?Recorded ?Confirmed ?Type valacyclovir 1 gram tablet 1,000 mg PO DAILY 07/11/22 08/02/25 History alprazolam 0.25 mg tablet 0.25 mg PO DAILY 09/09/22 08/02/25 History lamotrigine 50 mg tablet,extended 50 mg PO DAILY 10/21/22 08/02/25 History release 24 hr cholecalciferol (vitamin D3) 50 50 mcg PO DAILY 07/20/25 08/02/25 History mcg (2,000 unit) capsule (Vitamin D3) cyanocobalamin (vitamin B-12) 1,000 mcg PO DAILY 07/20/25 08/02/25 History 1,000 mcg tablet (Vitamin B-12) Laboratory Tests 08/02/25 12:57 POC Urine HCG, Qual Negative (Negative) HCG: negative Patient hx anesthesia problems: none Family hx anesthesia problems: none Results Review: All pre-operative results and documents have been reviewed as part of the pre-operative evaluation. [facility] Past Medical History Medical History Degenerative joint disease of cervical and lumbar spine Hip pain, bilateral Depression Rotator cuff arthropathy of right shoulder Inflammatory arthritis Herpes genitalia Surgical History Surgical History No pertinent past surgical history Social History Social History Smoking status: Current every day smoker Tobacco type: e-cigarettes/vaping Alcohol intake: current Alcohol use details: socially Substance use: current Substance use type: marijuana Lack of Transportation: No Lack of Food: Never True Current Housing: I Have Housing Concerned About Future Housing: No Difficulty Paying Gas/Electric Bills: No Difficulty Paying for Meds: No Currently Unemployed: No Education: High School Diploma/GED Difficulty w/ Childcare or Family Care: No Living arrangements: with family Gender identity (if verbalized by the patient): Female Spiritual care concerns: No Anes - Eval Final PreProcedure Day of Procedure 08/02/25 13:17 Patient weight: obese Heart: regular rate and rhythm Lungs: normal air movement Airway: Mallampati scale class 1 Neurological: alert and oriented Last oral intake: >/= 8 hours ASA classification: II Emergent: no Anesthetic plan: proceed Anesthesia type and monitoring: general GIVS and standard monitoring Results Review: All pre-operative results and documents have been reviewed as part of the pre-operative evaluation. Informed Consent: The patient's anesthetic plan and its attendant risks and benefits were discussed with the patient/family/POA. Questions were solicited and answers provided to the satisfaction of the patient/family/POA.
--- NOTE | 2025-08-02 13:23 | PM.IMHP ---
H&P: HPI History of Present Illness Date/Time: 08/02/25 13:23 Chief Complaint: Diarrhea- nausea-abdominal pain Narrative: this patient has been experiencing diarrhea since October 2024, more than 80% of the times, regardless of whatever she eats. This is associated with mild, lower crampy abdominal pain, which occasionally improves with defecation. There is no unintentional weight loss, bloody stools or vomiting. In addition she has frequent nausea. She is therefore referred for EGD and colonoscopy with biopsies to rule out microscopic colitis Review of Systems Review of Systems: All systems reviewed & are unremarkable except as noted in HPI and below PMFSH Past Medical History Medical History Degenerative joint disease of cervical and lumbar spine Hip pain, bilateral Depression Rotator cuff arthropathy of right shoulder Inflammatory arthritis Herpes genitalia Surgical History Surgical History No pertinent past surgical history Social History Social History Smoking status: Current every day smoker Tobacco type: e-cigarettes/vaping Alcohol intake: current Alcohol use details: socially Substance use: current Substance use type: marijuana Lack of Transportation: No Lack of Food: Never True Current Housing: I Have Housing Concerned About Future Housing: No Difficulty Paying Gas/Electric Bills: No Difficulty Paying for Meds: No Currently Unemployed: No Education: High School Diploma/GED Difficulty w/ Childcare or Family Care: No Living arrangements: with family Gender identity (if verbalized by the patient): Female Spiritual care concerns: No Meds Home Medications and Allergies Home Medications ?Medication ?Instructions ?Recorded ?Confirmed ?Type valacyclovir 1 gram tablet 1,000 mg PO DAILY 07/11/22 08/02/25 History alprazolam 0.25 mg tablet 0.25 mg PO DAILY 09/09/22 08/02/25 History lamotrigine 50 mg tablet,extended 50 mg PO DAILY 10/21/22 08/02/25 History release 24 hr cholecalciferol (vitamin D3) 50 50 mcg PO DAILY 07/20/25 08/02/25 History mcg (2,000 unit) capsule (Vitamin D3) cyanocobalamin (vitamin B-12) 1,000 mcg PO DAILY 07/20/25 08/02/25 History 1,000 mcg tablet (Vitamin B-12) Allergies Allergy/AdvReac Type Severity Reaction Status Date / Time No Known Allergies Allergy Verified 08/02/25 12:55 Vital Signs Vital Signs - 24 hr 08/02/25 12:57 Temperature 97.6 F Pulse Rate 84 Respiratory Rate 16 Blood Pressure 114/73 Pulse Oximetry 99 Oxygen Delivery Room Air Exam Const: General: cooperative and healthy appearing Resp: Effort & Inspection: normal respiratory effort and able to speak in complete sentences Auscultation: clear to auscultation bilaterally Cardio: Rate: regular rate Rhythm: regular rhythm GI: Inspection: normal to inspection GI Palp: No No hepatosplenomegaly present Auscultation: normal bowel sounds Rectal Exam: deferred Skin: General skin exam: normal color Psych: Appearance: grossly normal Mental Status: mental status grossly normal Assessment and Plan Assessment and plan (1) Diarrhea: Qualifiers: Diarrhea type: unspecified type Qualified Code(s): R19.7 - Diarrhea, unspecified Code(s): R19.7 - Diarrhea, unspecified Status: Acute Assessment and Plan: The patient is deemed a good candidate for the procedures. Consent signed. Will proceed. (2) Nausea: Code(s): R11.0 - Nausea Status: Acute
--- NOTE | 2025-08-02 13:41 | SUR.OPER ---
EGD ended 1334 and colonoscopy started 1330
--- NOTE | 2025-08-02 13:43 | S_PTH ---
PATIENT: Angeline Lance LOC: [facility]#:[id number] AGE/SX: 25/F ROOM: RE08/02/[address]: Carmelo Galindo MD : 2000 BED: DIS: 08/02/2025 SPEC #: [id number] RECD: 08/02/25 14:21 STATUS: DAWIT RESandy #: [id number] AMAURY: 08/02/25 13:[address]: Carmelo Galindo DEPT: [facility] Surgical RECD BY: Bryanna Jay MLT, ([facility]) ENTERED: 08/02/25 14:23 SP TYPE: Surgical OTHR DR: Sunshine Hodge, ANP Tissues: A - Gastric Biopsy B - Gastric Biopsy C - Duodenal Biopsy D - Colon Biopsy Procedures: Hematoxylin and Eosin Stain Gross and Microscopic Level 4
[2025-08-02 13:57] VITALS: BP 106/61; PULSE 85; RESP 19; O2SAT 100
[2025-08-02 14:07] VITALS: BP 112/71; PULSE 77; RESP 18; O2SAT 100
[2025-08-02 14:17] VITALS: BP 121/82; PULSE 81; RESP 24; O2SAT 100
== END 2025-08-02 14:26 | disposition home or self-care (01) ==
PROVIDERS: Anesthesiology; PCP Nurse Practitioner Family; Referring Provider Nurse Practitioner Family; Visit Provider Internal Medicine Gastroenterology
PROC: 0DJ08ZZ Inspection of Upper Intestinal Tract, Via Natural or Artificial Opening Endoscopic (ICD-10-PCS; CPT 45378; principal; 2025-08-02 14:15)
DX: K29.50 Unspecified chronic gastritis without bleeding (principal); F32.A Depression, unspecified; M06.4 Inflammatory polyarthropathy; M50.30 Other cervical disc degeneration, unspecified cervical region; M51.369 Other intervertebral disc degeneration, lumbar region without mention of lumbar back pain or lower extremity pain; F17.290 Nicotine dependence, other tobacco product, uncomplicated; F12.90 Cannabis use, unspecified, uncomplicated; E66.9 Obesity, unspecified; Z68.28 Body mass index [BMI] 28.0-28.9, adult
CPT/HCPCS: 43239; 45380; 88305; J2003; J2704; J7120

== ENCOUNTER 2025-08-22 14:27 | Outpatient (CLI) | payer BC, SELFPAY ==
--- OUTSIDE RECORDS SUMMARY | 2024-08-31 08:45 | XMS_ITS ---
Author Organization [facility] Address [address] [place] [id number] Care Team Providers Care Surveillance Agent Name Role Phone Dr. Nay Garza Primary Care Provider [phone] Sunshine Hodge Unavailable [phone] REASON FOR VISIT neck and back pain arm weakness Vital Signs Temperature 97.9 degrees Fahrenheit 08/31/20 24 Blood pressure systolic 128 mm Hg 08/31/20 24 Blood pressure diastolic 82 mm Hg 024 Heart Rate 84 /min 08/31/2024 Respiratory Rate 20 /min 08/31/2024 Weight 186.25 lbs 08/31/2024 Oximetry 98 % 08/31/2024 Weight-kg 84.48 kg 08/31/2024 Encounters Encounter Location Date Provider Diagnosis [address] [id number] 08/31/2024 Sunshine Hodge Bipolar disorder, unspecified F31.9 and Other muscle spasm M62.838 Assessments Encounter Date Diagnosis (ICD Code) Assessment Notes Treatment Notes Treatment Clinical Notes Section Notes 08/31/2024 Bipolar disorder, unspecified (ICD-10 - F31.9) 08/31/2024 Other muscle spasm (ICD-10 - M62.838) Plan Of Treatment No Information Progress Notes * Angeline CHAPMAN SDOB:[birth year] (25 yo F)Acc No.[id number]:08/31/2024 Patient: Elsa Angeline campos Provider: Obdulia Hodge NP :2000 A ge:24 Y S ex:Female Date:08/31/2024 Address:[address] [place], [place] [id number] Pcp:Dr. Nay Garza Subjective: * Chief Complaints: * N andrew and back pain arm weakness Objective: * Vitals: B P: 128/82 mm Hg, HR: 84 /min, RR: 20 /min, Temp: 97.9 F, Oxygen sat %: 98 %, Wt: 186.25 lbs, Wt-k.48 kg. Past Vitals:* 07/12/2023 BP: 136/70 mm Hg, HR: 82 /mi n, Oxygen sat %: 98 %, Wt: 164.99 lbs, Wt-k.84 kg * 04/15/2023 BP: 118/74 mm Hg, HR: 86 /mi n, Oxygen sat %: 96 %, Wt: 170.99 lbs, Wt-k.56 kg Assessment: * Assessment: 1. B ipolar disorder, unspecified - F31.9 S pecify :Src Diagnosis Name: Bipolar 1 disorder, depressed 2 . O ther muscle spasm - M62.838 S pecify :Src Diagnosis Name: Trapezius muscle spasm * Electronic signature of Heat her Hodge on 08/22/2025 at 06:37 PM CDT Sign off status: Pending * Provider: Obdulia Hodge NP Date: Generated for Ariel magana/Nelly/eTcristinasmmeg on: 06:37 PM CDT
--- OUTSIDE RECORDS SUMMARY | 2024-09-30 04:00 | XMS_ITS ---
Author Organization [facility] Address [address] [place] [address] Care Team Providers Care Heavy Equipment Service Manager Name Role Phone Dr. Nay Garza Primary Care Provider [phone] Migration, Provider Unavailable Unavailable REASON FOR VISIT EMR-Keith Encounters Encounter Location Date Provider Diagnosis [facility] [address] [place] [address] 09/30/2024 Provider Migration Plan Of Treatment Medication [...] 06/11/2022 03/15/2023 ,discontinuereason:D is continued *Reorder from [facility] for eRx and Interaction Alerts* lamoTRIgine [...] 03/15/2023 ,discontinuereason:D is continued *Pick strength-form from [employer] for eRX* Voltaren Arthritis Pain 1 % topical; Duration: 0 06/19/2022 03/15/2023 ,discontinuereason:D is continued *Pick strength-form from [employer] for eRX* LaMICtal 100 MG Tablet 1 Oral two times a day; Duration: 90 01/25/2024 07/22/2024 ,discontinuereason:R ef illed LaMICtal 25 MG Tablet 1 Oral every evening; Duration: 14 09/10/2022 09/23/2022 busPIRone HCl 5 MG Tablet 1 Oral two charles es a day; Duration: 06/05/2022 09/17/2022 no longer taking,discontinuereas on:Discontinued,PRN Reason:for [...] 11/19/2023 08/30/2024 ,discontinuereason:D is continued *Reorder from [employer] for eRx and Interaction Alerts* Lyrica 25 MG Capsule 1 Oral two times a day; Duration: 30 09/21/2024 09/21/2024 Rx Refill Request,discontinuerea son:Refilled DULoxetine HCl 30 MG Capsule Delayed Release Particles 1 Oral every day; Duration: 30 09/04/2022 09/09/2022 ,discontinuereason:D is continued Progress Notes * Angeline CHAPMAN SDOB:[birth year] (25 yo F)Acc No.[id number]:09/30/2024 Patient: Angeline SAM S :2000 A ge:24 Y S ex:Female Address:[address] [place] [phone] * Refills Stop valACYclovir HCl Tablet, 1 [...] 14 Subjective: * Chief Complaints: * E [facility] Objective: Past Vitals:* 08/31/2024 BP: 128/82 mm Hg, HR: 84 /mi n, Oxygen sat %: 98 %, Wt: 186.25 lbs, Wt-k.48 kg * 07/12/2023 BP: 136/70 mm Hg, HR: 82 /mi n, Oxygen sat %: 98 %, Wt: 164.99 lbs, Wt-k.84 kg * * Date:
--- OUTSIDE RECORDS SUMMARY | 2024-10-01 04:00 | XMS_ITS ---
Author Organization [facility] Address [address] [place] [address] Care Team Providers Care Special Systems Technician Name Role Phone Dr. Nay Garza Primary Care Provider [phone] Migration, Provider Unavailable Unavailable Allergies Allergen (clinical [...] [facility] [address] [place] [address] 10/01/2024 Provider Migration Plan Of Treatment No Information Progress Notes * Angeline CHAPMAN SDOB:[birth year] (25 yo F)Acc No.[id number]:10/01/2024 Patient: Angeline SAM :2000 A ge:24 Y S ex:Female Address:[address] [place] [address], [phone] Subjective: * Chief Complaints: * E MR-Keith [...]
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
--- OUTSIDE RECORDS SUMMARY | 2025-08-22 18:36 | XMS_ITS | Clinical Summary ---
Author Organization [facility] Address [address] [place] [address] Care Team Providers Care Craps Manager Name Role Phone Yesica Berrios MD Primary Care Provider Source Comments [facility],non-owned Affiliates and Associated Physician Practices is amultiple site organization consisting of ambulatory clinics and hospital sitesin [place], [place], [place] and [place]. This disclosure is being madepursuant to the Care Everywhere program and may not contain all information available regarding this patient. Last updated 18.[facility] Allergies No known active allergies Medications * Be aware that medications may not be up to date on this document. Alwaysverify current medications with the patient. Ibuprofen (MOTRIN PO) Take by mouth. 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 Gender Identity Not on file Sexual Orientation Not on file Plan of Treatment Health Maintenance Due Date Last Done Comments HIV SCREENING 2013 HEPATITIS C SCREENING 12/28/2015 DTAP/TDAP/TD VACCINES (1 - Tdap) 2017 HEPATITIS B VACCINE (1 of 3 - 19+ 3-dose series) 2017 PAP SMEAR 2019 DEPRESSION SCREENING 11/01/2024 HPV VACCINE (1 - 3-dose SCDM series) 2025 COVID-19 VACCINE (2023-2 5 season) 2025 INFLUENZA VACCINE (#1) 2025 ZOSTER VACCINE (1 of 2) 01/02/2048 HIB VACCINE Aged Out No longer eligi ble based on patient's age to complete this topic MENINGOCOCCAL (Group B) VACC INE SHARED DECISION-MAKING Aged Out No longer eligibl e based on patient's age to complete this topic MENINGOCOCCAL GROUPS A/C/Y/W VACCINE Aged Out No longer eligible b ased on patient's age to complete this topic PNEUMOCOCCAL VACCINE Aged Out No long er eligible based on patient's age to complete this topic Insurance [facility] SELF PAY NO INSURANCE Member Subscriber Plan / Payer (Ef fective for All Dates) Name:Leelee Chapman Member ID:Not on file Relation to Subscriber:Not on file Name:LEELEE CHAPMAN Subscriber ID:Not on file (Home) Address: [address] [place] [id number] Payer ID:Not on file Group ID:Not on file Type:Self Pay Address: [facility] Care Teams Craps Manager Relationship Specialty Start Date End Date Yesica Berrios MD [address] [place] [id number] PCP - General 07/14/10
--- OUTSIDE RECORDS SUMMARY | 2025-08-22 18:36 | XMS_ITS | Patient Health Record ---
Author Organization [facility]ly [facility] Address [address] [place] [id number] Care Team Providers Care Stem Roller Or Crusher Operator Name Role Phone Dr. Nay Garza Primary Care Provider [phone] Sunshine Hodge Unavailable [phone] Migration, Provider Unavailable Unavailable Allergies Allergen (clinical drug ingredient) Drug/Non Drug Allergy documented on EMR Reaction Allergy Type Onset Date Status Dust Mites Unknown Allergy 03/04/2021 Active Pollen (e.g. tree, grass) Unknown Allergy 03/04/2021 Active Results Component Value Reference Range Flag Notes Free T4 And TSH Reviewed date:05/16/2025 04:00:01 PM Interpretation: Performing Lab: Notes/Report: Test Performed by: [address] [address] Beverage Manager: Eladio Ellsworth DO T4 Free 0.79 0.60-1.70 ng/dL TSH 2.05 0.45-5.33 mcIU/mL Iron Level and TIBC Reviewed date:05/16/2025 04:00:01 PM Interpretation: Performing Lab: Notes/Report: Test Performed by: [address] [address] Beverage Manager: Eladio Ellsworth DO Iron Lvl 83 50-212 mcg/dL Transferrin 296 203-362 mg/dL TIBC 415 250-420 mcg/dL Iron Sat 20 20-55 % Vitamin B12 Reviewed date:05/16/2025 04:00:01 PM Interpretation: Performing Lab: Notes/Report: Test Performed by: [address] [place] [address] Beverage Manager: Eladio Ellsworth DO Vitamin B12 Lvl 302 180-914 pg/mL Vitamin B12 Interpretation: Normal Range: 180-914 pg/mL Indeterminate: 140-180 pg/mL Deficient: <140 pg/mL Magnesium Reviewed date:05/16/2025 04:00:01 PM Interpretation: Performing Lab: Notes/Report: Test Performed by: [place] [address] Beverage Manager: Eladio Ellsworth DO Magnesium Lvl 2.2 1.6-2.4 mg/dL Comprehensive Metabolic Pane l Reviewed date:05/16/2025 04:00:01 PM Interpretation: Performing Lab: Notes/Report: Test Performed by: [place] [address] Beverage Manager: Eladio Ellsworth DO Glucose Lvl 99 74-109 [...] Interpretation: Performing Lab: Notes/Report: Test Performed by: [place] [address] Beverage Manager: Eladio Ellsworth DO WBC 7.1 4.0-11.7 K/mcL RBC 4.43 3.80-5.41 x10*6/mcL Hgb 14.0 11.3-15.2 g/dL Hct 40.4 33.2-45.3 % MCV 91.2 79.5-98.1 fL MCH 31.5 27.0-34.2 pg MCHC 34.6 31.8-35.3 g/dL RDW 14.4 12.0-16.4 % Platelets 362 149-393 K/mcL MPV 8.5 7.0-11.0 fL Neutro Auto 74.8 45.3-79.0 % Lymph Auto 17.5 11.8-45.9 % [place] Auto 6.7 4.4-12.0 % Eosinophil Auto 0.7 0.0-6.3 % Basophil Auto 0.3 0.2-1.6 % Neutro Absolute 5.3 2.4-8.4 x10*3/mcL Lymph Absolute 1.2 0.8-3.7 x10*3/mcL [place] Absolute 0.5 0.3-1.1 x10*3/mcL Vitamin D 25 Hydroxy Reviewed date:05/16/2025 04:00:01 PM Interpretation: Performing Lab: Notes/Report: Test Performed by: [place] [id number] Beverage Manager: Eladio Ellsworth DO Vitamin D 25 OH 14 30-100 ng/mL L Vitamin D25 Interpretation: Deficient: <= 20 ng/mL Insufficient: 21-29 ng/mL Sufficient: 30-100 ng/mL Upper Safety Limit: >100 ng/mL Ferritin Reviewed date:05/16/2025 04:00:00 PM Interpretation: Performing Lab: Notes/Report: Test Performed by: [place] [id number] Beverage Manager: Eladio Ellsworth DO Ferritin Lvl 77.8 11.0-306.8 ng/mL Hemoglobin A1c {Glycosylated } Reviewed date:05/16/2025 04:00:00 PM Interpretation: Performing Lab: Notes/Report: Test Performed by: [place] [id number] Beverage Manager: Eladio Ellsworth DO Hemoglobin A1c 5.6 <=6.4 % Hemoglobin A1C < 5.7% = Normal 5.7-6.4% = Increased risk for future diabetes >=6.5% = Diabetes eAvg Glucose 114 <=117 mg/dL eAG Reference Range <117 mg/dL = Normal 117-137 mg/dL = Increased Risk For Future Diabetes >137 mg/dL = Diabetes Celiac Serology Profile-[facility] Reviewed [...] in patients without IgA deficiency. Performed By: [facility] [address] [place] [address] Transmission Superintendent: Doe Cheng MD, PhD CLIA Number: [id number] Gliadin See Below Chart Name Results Units [...] in patients without IgA deficiency. Performed By: [facility] [address] [place] [address] Transmission Superintendent: Doe Cheng MD, PhD CLIA Number: [id number] TTG Ab, IgA See Below Chart Name [...] indicate a response to therapy. Performed By: [facility] [address] [place] [address] Transmission Superintendent: Doe Cheng MD, PhD CLIA Number: [id number] IgA See Below Chart Name Results Units Flag Ref Range Immunoglobulin A 476 mg/dL H 68-408 Performed By: [facility] [address] [place], [place] [id number] Transmission Superintendent: Doe Cheng MD, PhD CLIA Number: [id number] Endomysial Ab IgA See Below Chart Name Results Units Flag Ref Range Endomysial Ab, IgA Titer <1:10 <1:10 INTERPRETIVE INFORMATION: Endomysial Antibody, IgA Titer The endomysial antigen has been identified as the protein cross-linking enzyme known as tissue transglutaminase. Performed By: [facility] [address] [place] [address] Transmission Superintendent: Doe Cheng MD, PhD CLIA Number: [id number] Echocardiogram Reviewed date:06/27/2025 09:21:35 AM Interpretation: Performing Lab: Notes/Report: Reason For Referral Reason chronic diarrhea and GI concerns. wanting GI referral for further assistance in assessing this. Diagnosis 1 Unspecified abdomina l pain (R10.9) Diagnosis 2 Chronic diarrhea (K5 2.9) Referral Organization [facility] Referring Provider First Name Sunshine Referring Provider Last Name Ayesha Referring Provider Speciality Nurse Prac titioner Referred Provider Specialty Gastroentero logy General Notes Yeimi Dunlap 05/21 03:15:39 PM CDT >Padmini Galeano Jessica 05/23/2025 10:54:51 AM CDT >Referral faxed to Padmini Galeano Jessica 05/23/2025 10:55:20 AM CDT >[facility] HENRIQUEZ [phone], Yeimi Dunlap 08/10/2025 02:18:50 PM CDT >consult note in chart Referral Priority Routine Referral Appointment Date 08/02/2025 Medications Medication SIG (Take, Route, Frequency, Duration) Notes Start Date End Date Status Cyanocobalamin 1000 MCG Tablet 1 tablet Orally Once a day; Duration: 30 days 05/17/2025 Active valACYclovir HCl 1 GM Tablet 1 tablet Orally daily; Duration: 90 days Active Ergocalciferol 1.25 MG (12602 UT) Capsule 1 capsule Orally weekly; Duration: [...] hours As needed 06/29/2025 Active Social History Social History Additional Details Category Social Info Options Details Miscellaneous: Occupation: currently emp loyed Drug/Alcohol: Do you smoke marijuana? Adm its Section Notes: Tobacco use: Rarely , Alcoho l use: None Tobacco use: Rarely , Alcoho l use: None Problems Problem Type SNOMED Code ICD Code Onset Dates Problem Status W/U Status Risk Notes Problem Vitamin D deficiency (07247106) Vitamin D deficiency, unspecified (E55.9) Active confirmed Problem Vitamin D deficiency (86970946) Vitamin D deficiency (E55.9) Active confirmed Problem Bipolar disorder (38884836) Bipolar disorder, unspecified (F31.9) 3 Active confirmed Problem Anxiety disorder (309415716) Anxiety disorder, unspecified (F41.9) 2 Active confirmed Problem Rheumatoid arthritis (51988328) Rheumatoid arthritis, unspecified (M06.9) 2 Active confirmed Problem Fibromyalgia (285296713) Fibromyalgia (M79.7) 3 Active confirmed Problem Health status (009460069) Other specified health status (Z78.9) 2 Active confirmed Problem Low back pain (055122909) Low back pain, unspecified (M54.50) 2 Active confirmed Problem Cyst of left ovary (666848079909735 08) Unspecified ovarian cyst, left side (N83.202) 1 Active confirmed Problem Long-term current use of drug therapy (720695575) Other retirement (current) drug therapy (Z79.899) 2 Active confirmed Problem Abnormal weight gain (565890869) Abnormal weight gain (R63.5) 3 Active confirmed Problem Form of skin change (760668247) Other skin changes (R23.8) 2 Active confirmed Problem Localized swelling, mass and lump, right upper limb (R22.31) 4 Active confirmed Problem Backache (684036068) Dorsalgia, unspecified (M54.9) 2 Active confirmed Problem Shoulder joint pain (496447007) Pain in unspecified shoulder (M25.519) 4 Active confirmed Problem Mild intermittent asthma (673128178) Mild intermittent asthma, uncomplicated (J45.20) 2 Active confirmed Problem Chronic pain (83756142) Other chronic pain (G89.29) 2 Active confirmed Problem Migraine without aura, not refractory (disorder) (208160746) Migraine, unspecified, not intractable, without status migrainosus (G43.909) 3 Active confirmed Problem Major depression, single episode (37069968) Major depressive disorder, single episode, unspecified (F32.9) 9 Active confirmed Problem Herpes simplex viral infection (19130461) Herpesviral infection, unspecified (B00.9) 2 Active confirmed Problem Dysmenorrhea (184865599) Menstrual pain (N94.6) Active confirmed Problem Spasm (82316133) Other muscle spasm (M62.838) 3 Active confirmed Vital Signs Heart Rate 88 /min 07/13/2025 Temperature 97.8 degrees Fahrenheit 07/13/2025 Respiratory Rate 20 /min 07/13/2025 Height-cm 165.1 cm 07/13/2025 Oximetry 96 % 07/13/2025 Blood pressure diastolic 92 mm Hg 07/13/2025 Weight-kg 81.83 kg 07/13/2025 Height 65.00 in 07/13/2025 Blood pressure systolic 112 mm Hg 07/13/2025 Weight 180.4 lbs 07/13/2025 BMI 30.02 kg/m2 07/13/2025 Procedures Procedure Date Ordered Date Performed Result Body Sit e ESOPHAGOGASTRODUODENOSCOPY 08/02/2025 08/02/2025 N/A Colonoscopy 08/02/2025 08/02/2025 N/A Encounters Encounter Location Date Provider Diagnosis [address] [address] 08/31/2024 Sunshine Beckert Bipolar disorder, unspecified F31.9 and Other muscle spasm M62.[address] [address] 05/15/2025 Sunshine Beckert Bipolar disorder, unspecified F31.9 ; Anxiety disorder, unspecified F41.9 ; Fibromyalgia M79.7 ; Pre-syncope R55 ; Mild intermittent asthma, uncomplicated J45.20 ; Dorsalgia, unspecified M54.9 ; Chronic diarrhea K52.9 ; Migraine syndrome G43.909 ; Urinary incontinence in female R32 ; Herpes simplex B00.9 and Menstrual pain N94.[address] [address] 07/13/2025 Sunshine Hodge Mild intermittent asthma, uncomplicated J45.20 ; Pre-syncope R55 ; Chronic diarrhea K52.9 ; Anxiety disorder, unspecified F41.9 ; Vitamin B12 deficiency E53.8 and Vitamin D deficiency E55.[address] [address] 09/30/2024 Provider Migration [address] [address] 10/01/2024 Provider Migration [address] [address] 04/02/2025 Sunshine Hodge [address] [address] 05/16/2025 Dr. Nay Garza [address] [address] 05/16/2025 Dr. Nay Garza Vitamin D deficiency, unspecified E55.9 ; Vitamin B12 deficiency E53.8 and Pre-syncope R55 [address] [address] 05/20/2025 Dr. Nay Garza [address] [address] 06/29/2025 Sunshine Hodge Assessments Encounter Date Diagnosis [...] anything.- Ordered pulmonary function test (PFT) at [facility] to evaluate lung function and response to [...] extreme or strenuous exercise until further evaluation. 07/13/2025 Pre-syncope (ICD-10 - R55) - Presyncopal [...] -Uses PRN alprazolam, rarely uses them 07/13/2025 Chronic diarrhea (ICD-10 - K52.9) - [...] and back 05/16/2025 Pre-syncope (ICD-10 - R55) 07/13/2025 Anxiety disorder, unspecified (ICD-10 - F41.9) -Uses PRN alprazolam, rarely uses them. -She feels anxiety is well controlled at the moment 05/15/2025 Pre-syncope (ICD-10 - R55) - Presyncopal episodes associated with activity. Differential includes anemia and cardiac dysfunction.- Order blood work - If blood work is negative, proceed with echocardiogram (ultrasound of the heart) to assess cardiac function and structure.- Advise patient to avoid high-intensity aerobic activity until further evaluation is complete 07/13/2025 Vitamin B12 deficiency (ICD-10 - E53.8) [...] Date Coverage End Date [employer]BS[employer] [id number] [place] [address] [id number] Angeline Lance Self - patient is the [...] R63.5 Other specified health status Z78.9 Other intermediate project manager (current) drug therapy Z 79.899 Unspecified ovarian cyst, left side N83. 202 Low back pain, unspecified M54.50 Surgical History Surgery Date(Month/Year) toe surgery notes; right big toe EGD @ [facility] Dr. Galindo. 08/02/[address] Galindo. Repeat at age 43. 08/02/25
--- OUTSIDE RECORDS SUMMARY | 2025-08-22 18:36 | XMS_ITS | Clinical Summary ---
Author Organization [facility] Address [address] [place] [address] Care Team Providers Care Agricultural Equipment Salesperson Name Role Phone Sunshine Bose RN Primary [...] Comments Blood Pressure 122/64 10/05/2019 4:54 PM RESEARCH BIOSTATISTICIAN Pulse 90 10/05/2019 4:54 PM RESEARCH BIOSTATISTICIAN Temperature 36.8 C (98.3 F) 10/05/2019 4:54 PM RESEARCH BIOSTATISTICIAN Respiratory Rate 18 10/05/2019 4:54 PM RESEARCH BIOSTATISTICIAN Oxygen Saturation 98% 10/05/2019 4:54 PM RESEARCH BIOSTATISTICIAN Inhaled Oxygen Concentration - - Weight 76.8 kg (169 lb 6.4 oz) 10/05/2019 4:54 P M RESEARCH BIOSTATISTICIAN Height 165.1 cm (5' 5) 10/05/2019 4:54 PM RESEARCH BIOSTATISTICIAN Body Mass Index 28.19 10/05/2019 4:54 PM RESEARCH BIOSTATISTICIAN Plan of Treatment Health Maintenance Due Date [...] M series) 2025 COVID-19 Vaccine (1 - 2024-2 6 season) 2025 Influenza Adult (#1) 2025 Meningococcal Vaccine Completed 09/12/2014 Hepatitis A Vaccines Aged Out No long er eligible based on patient's age to complete this topic Meningococcal B Vaccine Aged Out No l [...] patient's age to complete this topic Insurance [address] [place] [address] Care Teams Agricultural Equipment Salesperson Relationship Specialty Start Date End Date Sunshine Bose, RN PCP - General REGISTERED NURSE 08/01/19
--- OUTSIDE RECORDS SUMMARY | 2025-08-22 18:37 | XMS_ITS | Clinical Summary ---
Author Organization [facility] [address] [place] [address] Care Team Providers Care Electrical Assistant Name Role Phone No, Physician Primary Care Provider [phone] Allergies No known active allergies Medications ketorolac [...] on file Legal Sex Female 5:34 AM BASTING MARKER Gender Identity Not on file Sexual Orientation Not on file Obstetrics History Last Filed Vital Signs Vital Sign Reading Time Taken Comments Blood Pressure 117/75 09/27/2024 12:48 PM BASTING MARKER Pulse 75 09/27/2024 12:48 PM BASTING MARKER Temperature 36.9 C (98.4 F) 09/27/2024 12:48 PM BASTING MARKER Respiratory Rate 16 09/27/2024 12:4 8 PM BASTING MARKER Oxygen Saturation 100% 09/27/2024 12: 48 PM BASTING MARKER Inhaled Oxygen Concentration - - Weight 62.6 kg (137 lb 15.8 oz) 018 11:36 AM CDT Height 160 cm (5' 3) 09/27/2024 10:58 AM BASTING MARKER Body Mass Index 22.96 02/16/2018 11:36 AM [...] to complete this topic Insurance Care Teams Electrical Assistant Relationship Specialty Start Date End Date No, Physician PCP - General 09/27/24
--- NOTE | 2025-09-23 23:54 | WPDPFTINT ---
PFT Procedure Performed PFT Procedure Performed Plethysmography (Lung Vol) Diffusing Cap (DLCO) Spirometry w/o Bronchodil PFT Interpretation DOS: 08/22/2025 REQUESTING: JOSELITO Gama REASON FOR TESTING: asthma PULMONARY FUNCTION TESTS Results are reliable and reproducible. Repeatability of spirometry FEV1 maneuver is Grade B. [facility]: GLI 2012 reference equations were used. Spirometry: The FEV1 is 2.99 L, 103%. The FVC is 3.85 L, 114%. The FEV1/FVC ratio is 78%. Lung volumes: The total lung capacity is 5.24 L, 114%. The residual volume is 1.39 L, 109%. The RV/TLC is 27%. Airway resistance is normal. Diffusion: DLCO is 20.5, 80%. The DLCO/VA is 4.26, 87%. Flow volume loop: The flow volume loop i not reproducible. There were 2 complete flow volume loops. A minimum of 3 loops required to interpret loops. IMPRESSION: Normal spirometry without bronchodilator administration. Normal lung volumes and diffusion. Flow volume loops are not interpretable due to insufficient data. Lack of response to bronchodilator should not preclude use if clinically indicated. Chanelle Venegas MD
== END 2025-08-22 14:28 | disposition home or self-care (01) ==
PROVIDERS: PCP Nurse Practitioner Family; Visit Provider Nurse Practitioner Family
DX: J45.20 Mild intermittent asthma, uncomplicated (principal)
CPT/HCPCS: 94375; 94726; 94729